=== PATIENT | female | born 1950 | race Caucasian/White ===

== ENCOUNTER 2016-09-01 11:54 | Emergency (ER) | payer MEDICARE, OTHER ==
[2016-06-19 07:32] VITALS: BMI 17.8
[~2016-09-01 11:54] MED LIST: BENZONATATE200 MG PO; DALIRESP500 MCG PO; DURAGESIC1 PATCH .2 TD; EXCEDRIN EXTRA1 TAB PO; HYDROCODONE-APA1 TAB PO; INCRUSE IH; PHENERGAN25 M1 PO; PRILOSEC20 MG PO; SYMBICORT 16010.2 GM INH; TARCEVA150 MG PO
[2016-09-01 16:02] LABS: BASOPHILS 0.3 % (0.0-2.0); EOSINOPHILS 0.3 % (0-7); HEMATOCRIT 40.4 % (36.0-48.0); HEMOGLOBIN 12.8 g/dL (12-16); IMMATURE GRANULOCYTES 0.3 % (0-5); LYMPHOCYTES 8.8 % (15-50); MCHC 31.7 g/dL (31.0-37.0); MCV 91.6 fL (80.0-100.0); MEAN PLATELET VOLUME 9.5 fL (7.4-10.4); NEUTROPHILS 84.3 % (40-80); PLATELET COUNT 210 10x3/uL (130-400); RBC 4.41 10x6/uL (4.00-5.40); RDW 15.3 % (11.5-14.5); WBC 6.8 10x3/uL (4.8-10.8)
[2016-09-01 16:11] LABS: INR 1.11 (0.85-1.17); PROTIME 14.2 SECONDS (11.6-15.0)
[2016-09-01 16:13] LABS: ANION GAP 10.9 mmol/L (8-16); CALCIUM 9.6 mg/dL (8.5-10.1); CARBON DIOXIDE 30.8 mmol/L (21.0-32.0); CREATININE - SERUM 1.4 mg/dL (0.6-1.3); POTASSIUM - SERUM 4.7 mmol/L (3.5-5.1)
== END 2016-09-01 19:05 | disposition home or self-care (01) ==
LOC: D.ER 11:54
PROVIDERS: Nurse Practitioner Family
DX: T18.128A Food in esophagus causing other injury, initial encounter (principal); X58.XXXA Exposure to other specified factors, initial encounter; Y93.89 Activity, other specified; Y92.019 Unspecified place in single-family (private) house as the place of occurrence of the external cause; M54.9 Dorsalgia, unspecified; C34.90 Malignant neoplasm of unspecified part of unspecified bronchus or lung

== ENCOUNTER 2016-10-07 19:14 | Emergency (ER) | payer MEDICARE, OTHER ==
[2016-06-19 07:32] VITALS: BMI 17.8
[2016-10-07 20:21] LABS: APPEARANCE CLEAR (CLEAR); BILIRUBIN NEGATIVE (NEGATIVE); COLOR YELLOW (YELLOW); GLUCOSE NEGATIVE (NEGATIVE); KETONE NEGATIVE (NEGATIVE); LEUKOCYTE ESTERASE NEGATIVE (NEGATIVE); NITRITE NEGATIVE (NEGATIVE); PROTEIN NEGATIVE (NEGATIVE); UROBILINOGEN NORMAL (NORMAL)
== END 2016-10-07 20:28 | disposition home or self-care (01) ==
LOC: D.ER 19:14
PROVIDERS: Nurse Practitioner Acute Care
DX: K59.00 Constipation, unspecified (principal); C34.90 Malignant neoplasm of unspecified part of unspecified bronchus or lung; F17.200 Nicotine dependence, unspecified, uncomplicated

== ENCOUNTER 2016-10-08 11:24 | Emergency (ER) | payer MEDICARE, OTHER ==
[2016-06-19 07:32] VITALS: BMI 17.8
== END 2016-10-08 14:38 | disposition left against medical advice (07) ==
LOC: D.ER 11:24
DX: K59.00 Constipation, unspecified (principal)

== ENCOUNTER 2016-10-10 13:42 | Emergency (ER) | payer MEDICARE, OTHER ==
[2016-06-19 07:32] VITALS: BMI 17.8
== END 2016-10-10 19:38 | disposition home or self-care (01) ==
LOC: D.ER 13:42
DX: K59.00 Constipation, unspecified (principal); C34.90 Malignant neoplasm of unspecified part of unspecified bronchus or lung

== ENCOUNTER 2016-11-09 00:32 | Emergency (ER) | payer MEDICARE, OTHER ==
[2016-06-19 07:32] VITALS: BMI 17.8
[2016-11-09 02:48] LABS: APPEARANCE CLEAR (CLEAR); BILIRUBIN NEGATIVE (NEGATIVE); COLOR YELLOW (YELLOW); GLUCOSE NEGATIVE (NEGATIVE); KETONE NEGATIVE (NEGATIVE); LEUKOCYTE ESTERASE TRACE (NEGATIVE); NITRITE NEGATIVE (NEGATIVE); PROTEIN NEGATIVE (NEGATIVE); UROBILINOGEN NORMAL (NORMAL)
[2016-11-09 02:51] LABS: BACTERIA FEW /hpf (NONE SEEN); EPITHELIAL CELLS OCC /hpf (0-5); RED CELLS - URINE 0-5 /hpf (0-5); WHITE CELLS - URINE OCC /hpf (0-5)
== END 2016-11-09 03:58 | disposition home or self-care (01) ==
LOC: D.ER 00:32
PROVIDERS: Surgery
DX: K59.00 Constipation, unspecified (principal); C34.90 Malignant neoplasm of unspecified part of unspecified bronchus or lung

== ENCOUNTER 2016-11-11 20:00 | Emergency (ER) | payer MEDICARE, OTHER ==
[2016-06-19 07:32] VITALS: BMI 17.8
[2016-11-11 20:56] LABS: BASOPHILS 0.3 % (0.0-2.0); EOSINOPHILS 1.4 % (0-7); HEMATOCRIT 35.6 % (36.0-48.0); HEMOGLOBIN 11.4 g/dL (12-16); IMMATURE GRANULOCYTES 0.2 % (0-5); LYMPHOCYTES 16.9 % (15-50); MCH 28.1 pg (26.0-34.0); MCV 87.7 fL (80.0-100.0); MEAN PLATELET VOLUME 9.1 fL (7.4-10.4); MONOCYTES 10.6 % (2-11); NEUTROPHILS 70.6 % (40-80); RBC 4.06 10x6/uL (4.00-5.40); RDW 14.2 % (11.5-14.5); WBC 5.7 10x3/uL (4.8-10.8)
[2016-11-11 21:01] LABS: PLATELET COUNT 281 10x3/uL (130-400)
[2016-11-11 21:15] LABS: ALKALINE PHOSPHATASE 54 U/L (46-116); ALT (SGPT) 11 U/L (10-68); BILIRUBIN - TOTAL 0.16 mg/dL (0.2-1.3); CALC OSMOLALITY 272 mosm/kg (275-300); CALCIUM 8.5 mg/dL (8.5-10.1); CARBON DIOXIDE 31.9 mmol/L (21.0-32.0); CHLORIDE - SERUM 99 mmol/L (98-107); CREATININE - SERUM 0.8 mg/dL (0.6-1.3); GLUCOSE 115 mg/dL (74-106); POTASSIUM - SERUM 4.9 mmol/L (3.5-5.1); PROTEIN - SERUM 6.7 g/dL (6.4-8.2); SODIUM 135 mmol/L (136-145); UREA NITROGEN 17 mg/dL (7-18); eGFR NON AFRICAN AMERICAN 76 mL/min (90-120)
== END 2016-11-11 22:19 | disposition home or self-care (01) ==
LOC: D.ER 20:00
PROVIDERS: Emergency Medicine
DX: J44.1 Chronic obstructive pulmonary disease with (acute) exacerbation (principal); T48.3X1A Poisoning by antitussives, accidental (unintentional), initial encounter; Y92.019 Unspecified place in single-family (private) house as the place of occurrence of the external cause; M54.9 Dorsalgia, unspecified; C34.90 Malignant neoplasm of unspecified part of unspecified bronchus or lung

== ENCOUNTER → 2017-03-04 12:56 | Outpatient (CLI) | payer MEDICARE, OTHER ==
[2016-06-19 07:32] VITALS: BMI 17.8
== END | disposition home or self-care (01) ==
LOC: D.CT 12:56
DX: Z85.118 Personal history of other malignant neoplasm of bronchus and lung (principal)

== ENCOUNTER 2017-03-25 07:18 | Outpatient (CLI) | payer MEDICARE, OTHER ==
[~2017-03-25] VITALS: Ht 167.6 cm; Wt 44.5 kg
[2017-03-25 07:55] LABS: BASOPHILS 0.2 % (0-2); HEMATOCRIT 38.1 % (36.0-48.0); HEMOGLOBIN 12.3 g/dL (12-16); LYMPHOCYTES 21.2 % (15-50); MCH 28.7 pg (26.0-34.0); MCHC 32.3 g/dL (31.0-37.0); MCV 88.8 fL (80.0-100.0); MEAN PLATELET VOLUME 9.5 fL (7.4-10.4); MONOCYTES 7.9 % (2-11); NEUTROPHILS 69.7 % (40-80); RBC 4.29 10x6/uL (4.00-5.40); RDW 14.2 % (11.5-14.5); WBC 5.8 10x3/uL (4.8-10.8)
[2017-03-25 07:57] LABS: PLATELET COUNT 216 10x3/uL (130-400)
[2017-03-25 08:00] VITALS: BP 126/73; Ht 167.6 cm; Wt 44.5 kg
[2017-03-25 08:28] LABS: ANION GAP 6.7 mmol/L (8-16); CALCIUM 8.7 mg/dL (8.5-10.1); CARBON DIOXIDE 34.6 mmol/L (21.0-32.0); POTASSIUM - SERUM 4.3 mmol/L (3.5-5.1)
[2017-03-25 08:30] LABS: APTT 30.6 SECONDS (22.8-39.4); INR 1.09 (0.85-1.17); PROTIME 13.9 SECONDS (11.6-15.0)
--- NOTE | 2017-03-25 16:15 | NUR ---
SEE POST PROCEDURE SHEET FOR VITAL SIGNS
== END 2017-03-25 15:40 | disposition home or self-care (01) ==
LOC: D.OPS 07:18 → D.CT 10:00 → D.OPS 10:00
PROVIDERS: Radiology Diagnostic Radiology
DX: C34.32 Malignant neoplasm of lower lobe, left bronchus or lung (principal); F17.200 Nicotine dependence, unspecified, uncomplicated; Z01.812 Encounter for preprocedural laboratory examination

== ENCOUNTER 2017-04-09 08:10 | Day surgery (SDC) | payer MEDICARE, OTHER ==
[~2017-04-09] VITALS: Ht 167.6 cm; Wt 54.4 kg
[~2017-04-09 08:10] MED LIST changes: +LINZESS145 MCG PO; +WELLBUTRIN SR150 MG PO
[2017-04-09] MEDS ORDERED: PROAIR HFA8.5 GM INH (08:44)
[2017-04-09 08:45] VITALS: BP 138/77; Ht 167.6 cm; Wt 54.4 kg
[2017-04-09 09:08] LABS: BASOPHILS 0.3 % (0-2); HEMATOCRIT 36.3 % (36.0-48.0); HEMOGLOBIN 12.3 g/dL (12-16); IMMATURE GRANULOCYTES 0.3 % (0-5); LYMPHOCYTES 6.4 % (15-50); MCH 29.5 pg (26.0-34.0); MCHC 33.9 g/dL (31.0-37.0); MCV 87.1 fL (80.0-100.0); MEAN PLATELET VOLUME 9.8 fL (7.4-10.4); MONOCYTES 5.5 % (2-11); NEUTROPHILS 86.5 % (40-80); PLATELET COUNT 212 10x3/uL (130-400); RBC 4.17 10x6/uL (4.00-5.40); RDW 13.9 % (11.5-14.5); WBC 7.7 10x3/uL (4.8-10.8)
[2017-04-09 09:56] LABS: INR 1.15 (0.85-1.17); PROTIME 14.5 SECONDS (11.6-15.0)
[2017-04-09 09:57] LABS: APTT 52.1 SECONDS (22.8-39.4)
--- NOTE | 2017-04-09 14:55 | NUR ---
1300 IV DC WITH CATHER TIP INTACT
--- NOTE | 2017-04-09 15:05 | NUR ---
HEMOTOMA TO PORT SITE ,DR DAVIDSON CALLED ,WANT TO SEE STILL WAITING ON DR DAVIDSON
== END 2017-04-09 14:00 | disposition home or self-care (01) ==
LOC: D.OPS 08:10 → D.PAN 10:00 → D.OPS 14:00
PROVIDERS: Anesthesiology
DX: C34.90 Malignant neoplasm of unspecified part of unspecified bronchus or lung (principal); F17.200 Nicotine dependence, unspecified, uncomplicated; J44.9 Chronic obstructive pulmonary disease, unspecified; R05 Cough; K21.9 Gastro-esophageal reflux disease without esophagitis; Z01.812 Encounter for preprocedural laboratory examination

== ENCOUNTER → 2017-09-06 09:08 | Outpatient (CLI) | payer MEDICARE, OTHER ==
[2017-04-09 08:45] VITALS: BMI 19.4
[~2017-09-06 09:08] MED LIST changes: +PROAIR HFA8.5 GM INH
== END | disposition home or self-care (01) ==
LOC: D.MRI 09:00
DX: Z85.118 Personal history of other malignant neoplasm of bronchus and lung (principal)

== ENCOUNTER → 2017-09-27 09:55 | Outpatient (CLI) | payer MEDICARE, OTHER ==
[2017-04-09 08:45] VITALS: BMI 19.4
== END | disposition home or self-care (01) ==
LOC: D.MRI 09:55
DX: K76.9 Liver disease, unspecified (principal)

== ENCOUNTER 2017-11-11 12:09 | Emergency (ER) | payer MEDICARE, OTHER ==
[2017-04-09 08:45] VITALS: BMI 19.4
[2017-11-12] MEDS ORDERED: EXCEDRIN CAPLET1 TAB (22:51)
== END 2017-11-11 14:14 | disposition home or self-care (01) ==
LOC: D.ER 12:09
DX: R07.0 Pain in throat (principal); J44.9 Chronic obstructive pulmonary disease, unspecified; Z85.118 Personal history of other malignant neoplasm of bronchus and lung

== ENCOUNTER 2017-11-12 12:57 | Inpatient (IN) | payer MEDICARE, OTHER ==
[~2017-11-12] VITALS: Ht 167.6 cm; Wt 41.7 kg
[2017-11-12 13:52] LABS: BASOPHILS 0.4 % (0-2); EOSINOPHILS 0.3 % (0-7); HEMATOCRIT 41.8 % (36.0-48.0); IMMATURE GRANULOCYTES 0.3 % (0-5); LYMPHOCYTES 10.6 % (15-50); MCH 29.9 pg (26.0-34.0); MCHC 33.5 g/dL (31.0-37.0); MCV 89.1 fL (80.0-100.0); MEAN PLATELET VOLUME 9.7 fL (7.4-10.4); MONOCYTES 5.3 % (2-11); NEUTROPHILS 83.1 % (40-80); RBC 4.69 10x6/uL (4.00-5.40); RDW 15.1 % (11.5-14.5); WBC 7.7 10x3/uL (4.8-10.8)
[2017-11-12 13:53] LABS: PLATELET COUNT 255 10x3/uL (130-400)
[2017-11-12 14:12] LABS: ALBUMIN 3.9 g/dL (3.4-5.0); ANION GAP 20.3 mmol/L (8-16); BILIRUBIN - TOTAL 0.6 mg/dL (0.2-1.3); CALCIUM 9.4 mg/dL (8.5-10.1); CARBON DIOXIDE 22.8 mmol/L (21.0-32.0); POTASSIUM - SERUM 4.1 mmol/L (3.5-5.1); PROTEIN - SERUM 8.2 g/dL (6.4-8.2)
[2017-11-12 16:07] LABS: APPEARANCE CLEAR (CLEAR); BILIRUBIN NEGATIVE (NEGATIVE); COLOR YELLOW (YELLOW); GLUCOSE NEGATIVE (NEGATIVE); KETONE MODERATE mg/dL (NEGATIVE); NITRITE NEGATIVE (NEGATIVE); PROTEIN 1+ mg/dL (NEGATIVE); UROBILINOGEN NORMAL (NORMAL)
[2017-11-12 16:08] LABS: BACTERIA FEW /hpf (NONE SEEN); EPITHELIAL CELLS OCC /hpf (0-5); RED CELLS - URINE 0-5 /hpf (0-5); WHITE CELLS - URINE 0-5 /hpf (0-5)
[2017-11-12 18:54] VITALS: BP 114/76
[2017-11-12 20:16] VITALS: BP 109/66
[2017-11-12] MEDS ORDERED: EXCEDRIN CAPLET1 TAB (22:51)
[2017-11-12 23:49] VITALS: BP 115/70
[2017-11-13 01:49] VITALS: BP 113/77; BMI 14.8
[2017-11-13 04:20] VITALS: BP 109/70
[2017-11-13 05:07] LABS: BASOPHILS 0.3 % (0-2); EOSINOPHILS 0.8 % (0-7); HEMATOCRIT 33.9 % (36.0-48.0); IMMATURE GRANULOCYTES 0.1 % (0-5); LYMPHOCYTES 13.5 % (15-50); MCH 28.9 pg (26.0-34.0); MCHC 32.4 g/dL (31.0-37.0); MCV 89.2 fL (80.0-100.0); MEAN PLATELET VOLUME 9.4 fL (7.4-10.4); MONOCYTES 7.5 % (2-11); NEUTROPHILS 77.8 % (40-80); PLATELET COUNT 214 10x3/uL (130-400); RDW 15.1 % (11.5-14.5); WBC 7.8 10x3/uL (4.8-10.8)
[2017-11-13 05:17] LABS: ANION GAP 13.1 mmol/L (8-16); CALCIUM 7.9 mg/dL (8.5-10.1); CARBON DIOXIDE 26.9 mmol/L (21.0-32.0); CREATININE - SERUM 0.9 mg/dL (0.6-1.3)
[2017-11-13 08:00] VITALS: BP 128/76
[2017-11-13 11:54] VITALS: BP 136/77
[2017-11-13] MEDS ORDERED: PROTONIX40 MG PO (12:14)
[2017-11-13 12:56] VITALS: Ht 167.6 cm; Wt 41.7 kg
== END 2017-11-13 12:00 | disposition home or self-care (01) | DRG 394 ==
LOC: OBSVTIME → D.ER 12:57 → D.OPS 12:57 → EDSTATUS 15:19 → D.MS 15:41 → D.ER 15:41 → D.SDCHOLD 15:41 → D.EDHOLD 15:41 → OBSVTIME 15:42 → D.EDHOLD 16:36 → D.SDCHOLD 16:36 → D.MS 18:43 → D.SDCHOLD 18:43 → D.MS 19:26
PROVIDERS: Family Medicine; Internal Medicine Gastroenterology
PROC: 0DD38ZX Extraction of Lower Esophagus, Via Natural or Artificial Opening Endoscopic, Diagnostic (ICD-10-PCS; 2017-11-12)
PROC: 0DD78ZX Extraction of Stomach, Pylorus, Via Natural or Artificial Opening Endoscopic, Diagnostic (ICD-10-PCS; 2017-11-12)
PROC: 0DC38ZZ Extirpation of Matter from Lower Esophagus, Via Natural or Artificial Opening Endoscopic (ICD-10-PCS; principal; 2017-11-12 18:04)
DX: T18.128A Food in esophagus causing other injury, initial encounter (principal); K22.10 Ulcer of esophagus without bleeding; F17.203 Nicotine dependence unspecified, with withdrawal; X58.XXXA Exposure to other specified factors, initial encounter; J44.9 Chronic obstructive pulmonary disease, unspecified; K22.2 Esophageal obstruction; K25.9 Gastric ulcer, unspecified as acute or chronic, without hemorrhage or perforation

== ENCOUNTER 2017-12-03 10:01 | Inpatient (IN) | payer MEDICARE, OTHER ==
[~2017-12-03] VITALS: Ht 167.6 cm; Wt 43.1 kg
--- NOTE | ~2017-12-03 | OP ---
PATIENT NAME: ELISSA PEMBERTON MEDICAL RECORD: [id number] :48 LOCATION:D.MS [id number] ADMISSION DATE:12/03/17 SURGEON: JEAN-CLAUDE HERNANDEZ MD DATE OF OPERATION: 12/03/2017 SURGEON: Jean-Claude Hernandez MD ANESTHESIOLOGIST: Raoul Warner MD PRODUCTION UTILITY WORKER: None. PREOPERATIVE DIAGNOSIS: Closed right valgus impacted subcapital femoral neck fracture. POSTOPERATIVE DIAGNOSIS: Closed right valgus impacted subcapital femoral neck fracture. PROCEDURE PERFORMED: Right hip pinning. ANTIBIOTIC: 1 gram Ancef. ESTIMATED BLOOD LOSS: 10 cc. FINDINGS: See body of report. COMPLICATIONS: None. PATHOLOGY: None. IMPLANTS: The implants utilized were the Endoventionis Paradise III 6.5 mm cannulated screws. Three screws were utilized, an 80 mm, an 85-mm, and an 85-mm screw. DRAINS: None. TOURNIQUET: None. POSTOP: Stable condition to the recovery room. COUNTS: Needle, sponge, and instrument counts were correct. INDICATIONS FOR PROCEDURE: The patient presented to the Emergency Room this afternoon after having sustained a fall when her dog tripped her up with the leash. She was unable to bear weight on her right lower extremity and experienced pain localizing to her groin with positive log roll. X-rays in the Emergency Room revealed a right closed valgus impacted subcapital femoral neck fracture. The patient was evaluated in the Emergency Room where a recommendation for hip pinning was made. The patient was admitted to the hospital, medically cleared and optimized the same day and was taken for surgery later this afternoon. DESCRIPTION OF PROCEDURE: The patient was brought to the operating room after risks, benefits, alternatives, and complications of the proposed procedure was discussed with her. Her questions were answered. She consented to the surgery and the consent forms were placed in the chart. The patient was placed supine on the fracture table. Her well leg was placed in OPERATIVE REPORT [id number] ELISSA PEMBERTON a sling made of blankets and was well protected. The fractured limb was applied to the fracture table utilizing the boot. A reduction maneuver was then performed and using fluoroscopic imaging in the AP and lateral planes it was that it would be possible to obtain the appropriate imaging for the surgery. An adequate reduction was also confirmed. The right lateral hip was then prepped and draped in the usual sterile fashion. Fluoroscopic imaging and a pin were utilized to determine the appropriate location for the incision and the appropriate direction for pin placement into the femoral head and neck. At this point, an incision was made lateral to the proximale femur and bleeders were cauterized down to the fascia jake. Small stab incisions were made for the 3 screws. Three pins were inserted under fluoroscopic guidance into appropriate position. Following this, measurements were taken over the pins and the three screws were applied one after the other over the three pins in the following order: The inferior screw, the superior anterior screw, and finally the superior posterior screw. The screws were placed under fluoroscopic guidance to an appropriate depth. Once all 3 screws were in, the 3 wires were removed and final imaging in the AP and lateral plane was performed revealing an adequate reduction and internal fixation. Copious irrigation was carried out followed by closure of the subcutaneous tissue with Vicryl and the skin with yasemin. A sterile dressing was applied. The patient was taken off the fracture table and was extubated and placed on a regular bed in the supine position and was taken to recovery room in stable condition. TRANSINT:[id number] Voice Confirmation ID: [id number] DOCUMENT ID: [id number] JEAN-CLAUDE HERNANDEZ MD at 1750 CC: [id number] DICTATION DATE: 12/03/171847 SOLAR POOL HEATING INSTALLER: 12/03/171937 ADM IN [facility] [address] [id number]
[~2017-12-03 10:01] MED LIST changes: +EXCEDRIN CAPLET1 TAB; +PROTONIX40 MG PO
[2017-12-03 12:23] LABS: BASOPHILS 0.2 % (0-2); EOSINOPHILS 0.6 % (0-7); HEMATOCRIT 33.7 % (36.0-48.0); IMMATURE GRANULOCYTES 0.3 % (0-5); LYMPHOCYTES 6.7 % (15-50); MCH 29.1 pg (26.0-34.0); MCHC 32.6 g/dL (31.0-37.0); MCV 89.2 fL (80.0-100.0); NEUTROPHILS 87.2 % (40-80); RBC 3.78 10x6/uL (4.00-5.40); RDW 15.6 % (11.5-14.5); WBC 11.1 10x3/uL (4.8-10.8)
[2017-12-03 12:24] LABS: PLATELET COUNT 311 10x3/uL (130-400)
[2017-12-03 12:30] LABS: INR 1.09 (0.85-1.17); PROTIME 13.7 SECONDS (11.6-15.0)
[2017-12-03 12:31] LABS: APTT 31.2 SECONDS (22.8-39.4)
[2017-12-03 12:37] LABS: ALBUMIN 2.9 g/dL (3.4-5.0); ALKALINE PHOSPHATASE 55 U/L (46-116); ALT (SGPT) 14 U/L (10-68); BILIRUBIN - TOTAL 0.28 mg/dL (0.2-1.3); CALC OSMOLALITY 279 mosm/kg (275-300); CALCIUM 7.9 mg/dL (8.5-10.1); CARBON DIOXIDE 27.9 mmol/L (21.0-32.0); CHLORIDE - SERUM 104 mmol/L (98-107); CREATININE - SERUM 0.7 mg/dL (0.6-1.3); GLUCOSE 85 mg/dL (74-106); POTASSIUM - SERUM 4.1 mmol/L (3.5-5.1); PROTEIN - SERUM 6.8 g/dL (6.4-8.2); SODIUM 140 mmol/L (136-145); UREA NITROGEN 18 mg/dL (7-18); eGFR NON AFRICAN AMERICAN 88 mL/min (90-120)
[2017-12-03 20:08] VITALS: BP 148/83
[2017-12-03 23:54] VITALS: BP 137/75
[2017-12-04 01:10] VITALS: BP 143/83; BMI 15.3
[2017-12-04 04:29] VITALS: BP 145/80
[2017-12-04 05:55] LABS: BASOPHILS 0.2 % (0-2); EOSINOPHILS 0.3 % (0-7); HEMATOCRIT 31.6 % (36.0-48.0); IMMATURE GRANULOCYTES 0.2 % (0-5); LYMPHOCYTES 4.9 % (15-50); MCH 28.7 pg (26.0-34.0); MCHC 31.6 g/dL (31.0-37.0); MCV 90.8 fL (80.0-100.0); MEAN PLATELET VOLUME 9.1 fL (7.4-10.4); MONOCYTES 6.2 % (2-11); NEUTROPHILS 88.2 % (40-80); RBC 3.48 10x6/uL (4.00-5.40); RDW 15.5 % (11.5-14.5); WBC 10.5 10x3/uL (4.8-10.8)
[2017-12-04 05:56] LABS: PLATELET COUNT 241 10x3/uL (130-400)
[2017-12-04 06:29] LABS: CALC OSMOLALITY 274 mosm/kg (275-300); CALCIUM 7.5 mg/dL (8.5-10.1); CARBON DIOXIDE 24.3 mmol/L (21.0-32.0); CHLORIDE - SERUM 103 mmol/L (98-107); CREATININE - SERUM 0.6 mg/dL (0.6-1.3); GLUCOSE 93 mg/dL (74-106); POTASSIUM - SERUM 4.2 mmol/L (3.5-5.1); SODIUM 137 mmol/L (136-145); UREA NITROGEN 15 mg/dL (7-18); eGFR NON AFRICAN AMERICAN > 90 mL/min (90-120)
[2017-12-04 08:40] VITALS: BP 115/71
[2017-12-04 10:27] VITALS: BMI 15.3
[2017-12-04 12:36] VITALS: BP 112/79
[2017-12-04 16:56] VITALS: BP 120/66
[2017-12-04 20:27] VITALS: BP 92/65
[2017-12-04 22:02] LABS: APPEARANCE CLEAR (CLEAR); BILIRUBIN NEGATIVE (NEGATIVE); COLOR YELLOW (YELLOW); GLUCOSE NEGATIVE (NEGATIVE); KETONE NEGATIVE (NEGATIVE); NITRITE NEGATIVE (NEGATIVE); PROTEIN NEGATIVE (NEGATIVE); UROBILINOGEN NORMAL (NORMAL)
[2017-12-04 22:04] LABS: RED CELLS - URINE 0-5 /hpf (0-5); WHITE CELLS - URINE 0-5 /hpf (0-5)
[2017-12-05 00:22] VITALS: BP 85/60
[2017-12-05 06:42] LABS: BASOPHILS 0.2 % (0-2); EOSINOPHILS 3.5 % (0-7); HEMATOCRIT 29.7 % (36.0-48.0); HEMOGLOBIN 9.5 g/dL (12-16); IMMATURE GRANULOCYTES 0.2 % (0-5); LYMPHOCYTES 7.5 % (15-50); MCH 29.1 pg (26.0-34.0); MCV 90.8 fL (80.0-100.0); MEAN PLATELET VOLUME 9.4 fL (7.4-10.4); MONOCYTES 8.6 % (2-11); PLATELET COUNT 221 10x3/uL (130-400); RBC 3.27 10x6/uL (4.00-5.40); RDW 15.1 % (11.5-14.5)
[2017-12-05 06:45] LABS: WBC 6.5 10x3/uL (4.8-10.8)
[2017-12-05 06:56] LABS: CALC OSMOLALITY 270 mosm/kg (275-300); CARBON DIOXIDE 29.3 mmol/L (21.0-32.0); CHLORIDE - SERUM 102 mmol/L (98-107); CREATININE - SERUM 0.6 mg/dL (0.6-1.3); GLUCOSE 108 mg/dL (74-106); POTASSIUM - SERUM 3.9 mmol/L (3.5-5.1); SODIUM 135 mmol/L (136-145); UREA NITROGEN 13 mg/dL (7-18); eGFR NON AFRICAN AMERICAN > 90 mL/min (90-120)
[2017-12-05 08:26] VITALS: BP 116/64
[2017-12-05 12:00] VITALS: BP 99/70
[2017-12-05 16:14] VITALS: BP 102/71
[2017-12-05 21:12] VITALS: BP 105/69
[2017-12-06 06:14] LABS: BASOPHILS 0.2 % (0-2); IMMATURE GRANULOCYTES 0.2 % (0-5); LYMPHOCYTES 15.5 % (15-50); MCH 29.2 pg (26.0-34.0); MCHC 32.3 g/dL (31.0-37.0); MCV 90.4 fL (80.0-100.0); MEAN PLATELET VOLUME 9.2 fL (7.4-10.4); MONOCYTES 11.1 % (2-11); PLATELET COUNT 235 10x3/uL (130-400); RBC 3.43 10x6/uL (4.00-5.40); RDW 15.4 % (11.5-14.5); WBC 5.8 10x3/uL (4.8-10.8)
[2017-12-06 06:33] LABS: CALC OSMOLALITY 276 mosm/kg (275-300); CALCIUM 8.3 mg/dL (8.5-10.1); CARBON DIOXIDE 30.1 mmol/L (21.0-32.0); CHLORIDE - SERUM 101 mmol/L (98-107); CREATININE - SERUM 0.6 mg/dL (0.6-1.3); GLUCOSE 91 mg/dL (74-106); POTASSIUM - SERUM 3.9 mmol/L (3.5-5.1); SODIUM 138 mmol/L (136-145); UREA NITROGEN 14 mg/dL (7-18); eGFR NON AFRICAN AMERICAN > 90 mL/min (90-120)
[2017-12-06 08:38] VITALS: BP 113/64
[2017-12-06 12:23] VITALS: BP 95/56
[2017-12-06 16:37] VITALS: BP 93/63
[2017-12-06 20:29] VITALS: BP 112/70
[2017-12-07 04:14] VITALS: BP 135/77
[2017-12-07 05:45] LABS: BASOPHILS 0.2 % (0-2); HEMATOCRIT 28.8 % (36.0-48.0); HEMOGLOBIN 9.4 g/dL (12-16); IMMATURE GRANULOCYTES 0.2 % (0-5); LYMPHOCYTES 11.6 % (15-50); MCHC 32.6 g/dL (31.0-37.0); MCV 88.9 fL (80.0-100.0); MEAN PLATELET VOLUME 9.2 fL (7.4-10.4); MONOCYTES 8.9 % (2-11); NEUTROPHILS 75.1 % (40-80); PLATELET COUNT 237 10x3/uL (130-400); RBC 3.24 10x6/uL (4.00-5.40); RDW 14.8 % (11.5-14.5); WBC 6.1 10x3/uL (4.8-10.8)
[2017-12-07 06:16] LABS: CALC OSMOLALITY 280 mosm/kg (275-300); CALCIUM 8.7 mg/dL (8.5-10.1); CARBON DIOXIDE 30.4 mmol/L (21.0-32.0); CHLORIDE - SERUM 103 mmol/L (98-107); CREATININE - SERUM 0.7 mg/dL (0.6-1.3); GLUCOSE 104 mg/dL (74-106); SODIUM 140 mmol/L (136-145); UREA NITROGEN 17 mg/dL (7-18); eGFR NON AFRICAN AMERICAN 88 mL/min (90-120)
[2017-12-07 08:55] VITALS: BP 126/80
[2017-12-07] MEDS ORDERED: ELIQUIS2.5 MG PO (10:25)
[2017-12-07 12:07] VITALS: BP 117/76
[2017-12-07 13:39] VITALS: Ht 167.6 cm; Wt 43.1 kg
[2017-12-07 16:32] VITALS: BP 121/76
== END 2017-12-07 18:01 | DRG 535 ==
LOC: D.ER 10:01 → D.MS 11:08 → D.EDHOLD 11:08 → D.MS 18:45
PROVIDERS: Emergency Medicine; Internal Medicine Nephrology; Orthopaedic Surgery Foot and Ankle Surgery
PROC: 0QS63ZZ Reposition Right Upper Femur, Percutaneous Approach (ICD-10-PCS; principal; 2017-12-03 12:00)
DX: S72.011A Unspecified intracapsular fracture of right femur, initial encounter for closed fracture (principal); E43 Unspecified severe protein-calorie malnutrition; C34.90 Malignant neoplasm of unspecified part of unspecified bronchus or lung; F17.203 Nicotine dependence unspecified, with withdrawal; Z68.1 Body mass index [BMI] 19.9 or less, adult; W01.0XXA Fall on same level from slipping, tripping and stumbling without subsequent striking against object, initial encounter; J44.9 Chronic obstructive pulmonary disease, unspecified; K21.9 Gastro-esophageal reflux disease without esophagitis

== ENCOUNTER 2017-12-07 14:43 | Inpatient (IN) | payer MEDICARE, OTHER ==
[~2017-12-07] VITALS: Ht 167.6 cm; Wt 42.6 kg
--- NOTE | ~2017-12-07 | RHP ---
PATIENT: ELISSA PEMBERTON MEDICAL RECORD: [id number] ACCOUNT: [id number] LOCATION:[facility].1114 : 48 ADMISSION DATE: 12/07/17 REHABILITATION HISTORY AND PHYSICAL EXAMINATION POST ADMISSION PHYSICIAN EXAMINATION POST-ADMISSION PHYSICAL EXAMINATION AND HISTORY AND PHYSICAL DATE OF ADMISSION TO THE REHAB: 12/07/2017 ADMITTING DIAGNOSES: Closed valgus impacted subcapital right femoral neck fracture status post hip pinning. HISTORY OF PRESENT ILLNESS: The patient is a 67-year-old female patient, who presents to the rehab secondary to a right hip fracture. The patient has a history of COPD, but she does not wear O2 at home, lung cancer status post radiation and chemo, which she is followed by with Dr. Lawton with her most recent chemo treatment being on 11/19. She presented to the ER with complaints of having a fall that morning when she was walking her dog and tripped over his leash. She now complains of right hip pain and unable to bear weight on her right leg. She does have 2 scabbed areas on her forehead from that fall that was sustained a week prior to this recent fall sustaining her femur fracture. She was admitted for further evaluation and treatment. On x-ray in the Emergency Room, a subcapital right femoral neck fracture was found. She had surgery on 12/03 with pinning of her right hip. She has had some postop acute blood loss anemia requiring O2, hypotension, tachycardia, self-care deficit, and immobility. She was independent with mobility and was still driving prior to this incident. She is currently set up for max assist for ADLs and [id number] assist for mobility. She is nonweightbearing on her right lower extremity. She lives at home with her granddaughter. Her works out of town and plans to return home as close to her prior level of functioning as possible. Comorbidities in this patient include hematuria, chronic COPD, chronic asthma, acute nicotine dependence and withdrawal, acute gastric ulcer, acute esophageal ulcer, acute Schatzki's ring, hip fracture, gastroesophageal reflux disease, anemia, cachexia, underweight, chronic back pain, and tobacco use. PAST MEDICAL HISTORY: Significant for COPD, asthma, pneumonia, lung cancer, tobacco use, chronic UTIs, chronic back pain. PAST SURGICAL HISTORY: Includes , appendectomy, tonsillectomy and adenoidectomy, tubal ligation, left knee scope, right ORIF of her tibia, and left lung ablation. ALLERGIES: PENICILLIN. SHE IS ALLERGIC TO ATIVAN, CODEINE, ZOLOFT, AND CELEXA. CURRENT MEDICATIONS: Include Ventolin updrafts as needed. She is on Linzess 145 mcg daily. Protonix 40 mg b.i.d. Benadryl 25 mg every 4 hours p.r.n. itching. [place] 1 tab every 6 hours p.r.n., . She is on a Duragesic patch 75 mcg daily. She is on Advair HFA 115/21 two puffs b.i.d., Tessalon Perles 400 mg t.i.d., Eliquis 2.5 mg b.i.d., and polyethylene glycol 17 g in 8 ounces of water daily. HABITS: Does have a history of tobacco use. No alcohol use. HISTORY AND PHYSICAL [id number] ELISSA PEMBERTON FAMILY HISTORY: Noncontributory. SOCIAL HISTORY: The patient hopes to return back home. Her granddaughter takes care of her. REVIEW OF SYSTEMS: GENERAL: Does complain of weakness and fatigue. HEENT: Denies cold, cough, or congestion. CARDIOVASCULAR: Denies chest pain. PHYSICAL EXAMINATION: VITAL SIGNS: Stable, afebrile. GENERAL: A very thin female, in no acute distress upon exam. HEENT: Normocephalic and atraumatic. Mucosa moist. NECK: Supple. No lymphadenopathy. LUNGS: Decreased breath sounds bilaterally. CARDIOVASCULAR: Regular rate and rhythm. ABDOMEN: Benign. EXTREMITIES: No clubbing, cyanosis, or edema. It is consistent with peripheral vascular disease and postop swelling is normal from her right hip pinning. NEUROLOGIC: She seems intact. ASSESSMENT: This is a 67-year-old female patient admitted to the rehab with a working diagnosis of right hip fracture. The patient has potential to make improvement. We will institute the following multidisciplinary therapies including, but not limited to physical, occupational, respiratory, speech, nutritional services, prosthetics and orthotics. Given her complex medical condition and risks of further complications, rehabilitation services cannot be provided at a low level of care such as a assisted facility. PLAN: 1. Admit to [facility] for intensive inpatient therapy to include the following disciplines: A. Physical therapy to improve gait, all transfer skills and bed mobility to a modified independent level. B. Occupational therapy to improve activities of daily living to a modified independent level. C. Case management to assist with discharge planning and placement options. D. Nutrition to assist with nutritional needs. E. Rehabilitation nursing to assist in monitoring the patient's underlying medical conditions and to assist with any type of bowel or bladder management. 2. The patient's current medications will be continued. 3. The patient will be placed on standard fall precautions. 4. The patient's estimated length of stay is approximately 7-10 days. 5. I am going to discontinue her Benadryl, place her on some Atarax for recurrent rash and itching. 6. We will follow up with care team at noon. TRANSINT:[id number] Voice Confirmation ID: [id number] DOCUMENT ID: [id number] AMALIA notes whether there has been none or any medical/functional change since admission: - No change since prescreen. HISTORY AND PHYSICAL [id number] ELISSA PEMBERTON attests patient continues to be appropriate for IRF: - Continues to be appropriate. KHALDIA ORTIZ MD at 1411 CC: [id number] DICTATION DATE: 12/08/17 0835 CAPACITY PLANNER: 12/08/17 1012 ADM IN [id number] [place] [address]
[~2017-12-07 14:43] MED LIST changes: +ELIQUIS2.5 MG PO
[2017-12-07 19:23] VITALS: BP 123/65
[2017-12-07 22:28] VITALS: BP 123/65; BMI 15.2
[2017-12-08 08:28] VITALS: BP 95/61
[2017-12-08 09:39] LABS: BASOPHILS 0.5 % (0-2); EOSINOPHILS 3.7 % (0-7); HEMATOCRIT 28.8 % (36.0-48.0); HEMOGLOBIN 9.4 g/dL (12-16); IMMATURE GRANULOCYTES 0.3 % (0-5); LYMPHOCYTES 16.6 % (15-50); MCH 29.4 pg (26.0-34.0); MCHC 32.6 g/dL (31.0-37.0); MEAN PLATELET VOLUME 9.4 fL (7.4-10.4); MONOCYTES 9.3 % (2-11); NEUTROPHILS 69.6 % (40-80); PLATELET COUNT 257 10x3/uL (130-400); RDW 14.9 % (11.5-14.5); WBC 5.9 10x3/uL (4.8-10.8)
[2017-12-08 09:41] VITALS: Ht 167.6 cm; Wt 42.6 kg
[2017-12-08 10:01] LABS: CALC OSMOLALITY 275 mosm/kg (275-300); CALCIUM 8.8 mg/dL (8.5-10.1); CARBON DIOXIDE 29.4 mmol/L (21.0-32.0); CHLORIDE - SERUM 99 mmol/L (98-107); CREATININE - SERUM 0.7 mg/dL (0.6-1.3); GLUCOSE 100 mg/dL (74-106); POTASSIUM - SERUM 3.9 mmol/L (3.5-5.1); SODIUM 137 mmol/L (136-145); UREA NITROGEN 17 mg/dL (7-18); eGFR NON AFRICAN AMERICAN 88 mL/min (90-120)
[2017-12-08 20:05] VITALS: BP 106/56
[2017-12-09 08:00] VITALS: BP 94/59
[2017-12-09 20:00] VITALS: BP 98/52
[2017-12-10 07:13] LABS: BASOPHILS 0.4 % (0-2); HEMATOCRIT 28.5 % (36.0-48.0); HEMOGLOBIN 9.2 g/dL (12-16); IMMATURE GRANULOCYTES 0.4 % (0-5); LYMPHOCYTES 14.9 % (15-50); MCH 29.1 pg (26.0-34.0); MCHC 32.3 g/dL (31.0-37.0); MCV 90.2 fL (80.0-100.0); MEAN PLATELET VOLUME 9.1 fL (7.4-10.4); MONOCYTES 9.8 % (2-11); NEUTROPHILS 71.5 % (40-80); PLATELET COUNT 258 10x3/uL (130-400); RBC 3.16 10x6/uL (4.00-5.40); RDW 14.9 % (11.5-14.5); WBC 4.7 10x3/uL (4.8-10.8)
[2017-12-10 07:26] LABS: ANION GAP 9.3 mmol/L (8-16); CALCIUM 8.8 mg/dL (8.5-10.1); CARBON DIOXIDE 34.2 mmol/L (21.0-32.0)
[2017-12-10 07:27] LABS: CREATININE - SERUM 0.9 mg/dL (0.6-1.3); POTASSIUM - SERUM 4.5 mmol/L (3.5-5.1)
[2017-12-10 08:25] VITALS: BP 91/52
[2017-12-10] MEDS ORDERED: HYDROCODONE-APA1 TAB PO (08:27)
[2017-12-10] MEDS ORDERED: DURAGESIC1 PATCH .2 TRANSDERM (08:27)
== END 2017-12-10 14:16 | disposition home health service (06) | DRG 559 ==
LOC: D.REHAB 14:43
PROVIDERS: Emergency Medicine
DX: S72.011D Unspecified intracapsular fracture of right femur, subsequent encounter for closed fracture with routine healing (principal); E43 Unspecified severe protein-calorie malnutrition; F17.203 Nicotine dependence unspecified, with withdrawal; K25.3 Acute gastric ulcer without hemorrhage or perforation; K22.10 Ulcer of esophagus without bleeding; C34.90 Malignant neoplasm of unspecified part of unspecified bronchus or lung; Z68.1 Body mass index [BMI] 19.9 or less, adult; R31.9 Hematuria, unspecified; J44.9 Chronic obstructive pulmonary disease, unspecified; K22.2 Esophageal obstruction; K21.9 Gastro-esophageal reflux disease without esophagitis; D64.9 Anemia, unspecified; R63.6 Underweight; G89.29 Other chronic pain; W01.0XXD Fall on same level from slipping, tripping and stumbling without subsequent striking against object, subsequent encounter

== ENCOUNTER 2018-03-01 11:09 | Emergency (ER) | payer MEDICARE, OTHER ==
[~2018-03-01] VITALS: Ht 167.6 cm; Wt 41.8 kg
[~2018-03-01 11:09] MED LIST changes: +DURAGESIC1 PATCH .2 TRANSDERM
[2018-03-01 11:22] VITALS: Ht 167.6 cm; Wt 41.8 kg
[2018-03-01 12:01] LABS: BASOPHILS 0.3 % (0-2); EOSINOPHILS 1.9 % (0-7); HEMATOCRIT 37.8 % (36.0-48.0); HEMOGLOBIN 12.2 g/dL (12-16); IMMATURE GRANULOCYTES 0.2 % (0-5); LYMPHOCYTES 16.8 % (15-50); MCH 27.9 pg (26.0-34.0); MCHC 32.3 g/dL (31.0-37.0); MCV 86.3 fL (80.0-100.0); MEAN PLATELET VOLUME 9.4 fL (7.4-10.4); MONOCYTES 6.6 % (2-11); NEUTROPHILS 74.2 % (40-80); PLATELET COUNT 258 10x3/uL (130-400); RBC 4.38 10x6/uL (4.00-5.40); RDW 15.5 % (11.5-14.5); WBC 6.5 10x3/uL (4.8-10.8)
[2018-03-01 12:18] LABS: ALBUMIN 3.2 g/dL (3.4-5.0); ALKALINE PHOSPHATASE 51 U/L (46-116); ALT (SGPT) 10 U/L (10-68); BILIRUBIN - TOTAL 0.16 mg/dL (0.2-1.3); CALC OSMOLALITY 277 mosm/kg (275-300); CALCIUM 8.4 mg/dL (8.5-10.1); CARBON DIOXIDE 29.7 mmol/L (21.0-32.0); CHLORIDE - SERUM 107 mmol/L (98-107); CREATININE - SERUM 0.7 mg/dL (0.6-1.3); GLUCOSE 90 mg/dL (74-106); POTASSIUM - SERUM 3.6 mmol/L (3.5-5.1); PROTEIN - SERUM 6.8 g/dL (6.4-8.2); SODIUM 139 mmol/L (136-145); UREA NITROGEN 12 mg/dL (7-18); eGFR NON AFRICAN AMERICAN 88 mL/min (90-120)
[2018-03-01 13:25] VITALS: BP 85/44
== END 2018-03-01 13:25 | disposition home or self-care (01) ==
LOC: D.ER 11:09
PROVIDERS: Family Medicine
DX: R04.2 Hemoptysis (principal); C34.90 Malignant neoplasm of unspecified part of unspecified bronchus or lung; R53.1 Weakness; J44.9 Chronic obstructive pulmonary disease, unspecified; F17.200 Nicotine dependence, unspecified, uncomplicated

== ENCOUNTER 2018-04-09 22:13 | Day surgery (SDC) | payer MEDICARE, OTHER ==
[~2018-04-09] VITALS: Ht 167.6 cm; Wt 43.1 kg
[2018-04-09 23:56] LABS: BASOPHILS 0.8 % (0-2); EOSINOPHILS 2.5 % (0-7); HEMATOCRIT 37.7 % (36.0-48.0); HEMOGLOBIN 12.5 g/dL (12-16); IMMATURE GRANULOCYTES 0.2 % (0-5); LYMPHOCYTES 10.6 % (15-50); MCH 28.2 pg (26.0-34.0); MCHC 33.2 g/dL (31.0-37.0); MCV 84.9 fL (80.0-100.0); MEAN PLATELET VOLUME 8.8 fL (7.4-10.4); MONOCYTES 7.4 % (2-11); NEUTROPHILS 78.5 % (40-80); RBC 4.44 10x6/uL (4.00-5.40); RDW 15.7 % (11.5-14.5); WBC 6.4 10x3/uL (4.8-10.8)
[2018-04-09 23:58] LABS: PLATELET COUNT 336 10x3/uL (130-400)
[2018-04-09 23:59] LABS: INR 1.13 (0.85-1.17); PROTIME 14.1 SECONDS (11.6-15.0)
[2018-04-10 00:05] LABS: ALKALINE PHOSPHATASE 75 U/L (46-116); ALT (SGPT) 11 U/L (10-68); BILIRUBIN - TOTAL 0.38 mg/dL (0.2-1.3); CALC OSMOLALITY 277 mosm/kg (275-300); CALCIUM 7.9 mg/dL (8.5-10.1); CARBON DIOXIDE 23.9 mmol/L (21.0-32.0); CHLORIDE - SERUM 104 mmol/L (98-107); CREATININE - SERUM 0.7 mg/dL (0.6-1.3); GLUCOSE 81 mg/dL (74-106); PROTEIN - SERUM 7.6 g/dL (6.4-8.2); SODIUM 139 mmol/L (136-145); UREA NITROGEN 15 mg/dL (7-18); eGFR NON AFRICAN AMERICAN 88 mL/min (90-120)
[2018-04-10 00:40] VITALS: BP 132/77
[2018-04-10] MEDS ORDERED: DILAUDID2 MG PO (01:53)
[2018-04-10 04:27] VITALS: BP 104/76
[2018-04-10 07:23] VITALS: BP 104/76; BMI 15.3
[2018-04-10 09:19] VITALS: BP 113/66
[2018-04-10 11:54] VITALS: Ht 167.6 cm; Wt 43.1 kg
[2018-04-10] MEDS ORDERED: PROTONIX40 MG PO (12:04)
== END 2018-04-10 12:58 | disposition home or self-care (01) ==
LOC: OBSVTIME → D.ER 22:13 → D.OPS 22:13 → D.ER 04-10 01:05 → D.EDHOLD 04-10 01:05 → OBSVTIME 04-10 01:05 → D.MS 04-10 01:05 → D.EDHOLD 04-10 01:19 → D.MS 04-10 01:19 → D.ER 04-10 01:39 → D.MS 04-10 12:58 → D.OPS 04-10 12:58
PROVIDERS: Family Medicine
DX: T18.128A Food in esophagus causing other injury, initial encounter (principal); J44.9 Chronic obstructive pulmonary disease, unspecified; K20.9 Esophagitis, unspecified; K29.80 Duodenitis without bleeding; K29.70 Gastritis, unspecified, without bleeding

== ENCOUNTER 2018-11-03 17:33 | Outpatient (CLI) | payer MEDICARE, OTHER ==
[2018-04-10 11:54] VITALS: BMI 15.3
[~2018-11-03 17:33] MED LIST changes: +DILAUDID2 MG PO
== END 2018-11-03 17:34 | disposition home or self-care (01) ==
LOC: D.MAMMO 17:33
PROVIDERS: ATTEND Internal Medicine Hematology & Oncology
DX: N63.11 Unspecified lump in the right breast, upper outer quadrant (principal)

== ENCOUNTER 2019-04-07 10:25 | Emergency (ER) | payer MEDICARE, OTHER ==
[~2019-04-07] VITALS: Ht 167.6 cm; Wt 38.9 kg
[2019-04-07 10:28] VITALS: Ht 167.6 cm; Wt 38.9 kg
[2019-04-07] MEDS ORDERED: HYDROCODON-ACE1 EAC7 PO (10:32)
[2019-04-07] MEDS ORDERED: PHENERGAN12.5 MG PO (10:34)
[2019-04-07 10:58] LABS: BASOPHILS 0.3 % (0-2); EOSINOPHILS 2.1 % (0-7); HEMATOCRIT 38.6 % (36.0-48.0); IMMATURE GRANULOCYTES 0.1 % (0-5); LYMPHOCYTES 17.9 % (15-50); MCHC 33.7 g/dL (31.0-37.0); MEAN PLATELET VOLUME 8.6 fL (7.4-10.4); MONOCYTES 7.2 % (2-11); NEUTROPHILS 72.4 % (40-80); RBC 4.49 10x6/uL (4.00-5.40); RDW 15.2 % (11.5-14.5); WBC 7.7 10x3/uL (4.8-10.8)
[2019-04-07 11:11] LABS: PLATELET COUNT 248 10x3/uL (130-400)
[2019-04-07 11:51] LABS: APPEARANCE TURBID (CLEAR); COLOR DK YELLOW (YELLOW); NITRITE POSITIVE (NEGATIVE); SPECIFIC GRAVITY 1.015 (1.005-1.020)
[2019-04-07 11:52] LABS: BACTERIA MODERATE /hpf (NONE SEEN); BILIRUBIN NEGATIVE (NEGATIVE); EPITHELIAL CELLS 0-5 /hpf (0-5); GLUCOSE NEGATIVE (NEGATIVE); KETONE NEGATIVE (NEGATIVE); MUCUS <1+ /lpf (NONE SEEN); PROTEIN 2+ mg/dL (NEGATIVE); RED CELLS - URINE >50 /hpf (0-5); WHITE CELLS - URINE >50 /hpf (0-5)
[2019-04-07 12:36] VITALS: BP 125/76
[2019-04-07 12:55] LABS: ALBUMIN 3.2 g/dL (3.4-5.0); ANION GAP 12.2 mmol/L (8-16); BILIRUBIN - TOTAL 0.22 mg/dL (0.2-1.3); CALCIUM 9.1 mg/dL (8.5-10.1); CARBON DIOXIDE 30.8 mmol/L (21.0-32.0); CREATININE - SERUM 1.2 mg/dL (0.6-1.3); PROTEIN - SERUM 7.6 g/dL (6.4-8.2)
[2019-04-07] MEDS ORDERED: MACRODANTIN100 MG PO (13:03)
== END 2019-04-07 13:35 | disposition home or self-care (01) ==
LOC: D.ER 10:25
PROVIDERS: Family Medicine
DX: N39.0 Urinary tract infection, site not specified (principal); R31.9 Hematuria, unspecified

== ENCOUNTER 2019-04-21 18:13 | Emergency (ER) | payer MEDICARE, OTHER ==
[2019-04-07 10:28] VITALS: BMI 13.8
[~2019-04-21 18:13] MED LIST changes: +HYDROCODON-ACE1 EAC7 PO; +MACRODANTIN100 MG PO; +PHENERGAN12.5 MG PO
[2019-04-22] MEDS ORDERED: ALBUTEROL SULF8.5 GM INH (00:23)
== END 2019-04-21 18:25 | disposition left against medical advice (07) ==
LOC: D.ER 18:13
DX: R06.02 Shortness of breath (principal)

== ENCOUNTER 2019-04-21 22:34 | Emergency (ER) | payer MEDICARE, OTHER ==
[~2019-04-21] VITALS: Ht 167.6 cm; Wt 40.4 kg
[2019-04-21 22:40] VITALS: Ht 167.6 cm; Wt 40.4 kg
[2019-04-21 22:59] LABS: BASOPHILS 0.3 % (0-2); EOSINOPHILS 3.9 % (0-7); HEMOGLOBIN 13.1 g/dL (12-16); IMMATURE GRANULOCYTES 0.2 % (0-5); LYMPHOCYTES 9.1 % (15-50); MCHC 33.6 g/dL (31.0-37.0); MCV 86.5 fL (80.0-100.0); MONOCYTES 5.7 % (2-11); NEUTROPHILS 80.8 % (40-80); PLATELET COUNT 217 10x3/uL (130-400); RBC 4.51 10x6/uL (4.00-5.40); RDW 15.1 % (11.5-14.5); WBC 10.3 10x3/uL (4.8-10.8)
[2019-04-21 23:12] LABS: ALBUMIN 3.9 g/dL (3.4-5.0); ANION GAP 7.2 mmol/L (8-16); BILIRUBIN - TOTAL 0.28 mg/dL (0.2-1.3); CALCIUM 8.5 mg/dL (8.5-10.1); CARBON DIOXIDE 33.8 mmol/L (21.0-32.0); CREATININE - SERUM 0.9 mg/dL (0.6-1.3); PROTEIN - SERUM 8.3 g/dL (6.4-8.2)
[2019-04-22] MEDS ORDERED: ALBUTEROL SULF8.5 GM INH (00:23)
[2019-04-22 00:30] VITALS: BP 141/97
== END 2019-04-22 00:30 | disposition home or self-care (01) ==
LOC: D.ER 22:34
PROVIDERS: Family Medicine
DX: J45.901 Unspecified asthma with (acute) exacerbation (principal); J44.9 Chronic obstructive pulmonary disease, unspecified

== ENCOUNTER 2019-05-07 13:29 | Emergency (ER) | payer MEDICARE, OTHER ==
[~2019-05-07] VITALS: Ht 167.6 cm; Wt 39.5 kg
[~2019-05-07 13:29] MED LIST changes: +ALBUTEROL SULF8.5 GM INH
[2019-05-07 13:32] VITALS: Ht 167.6 cm; Wt 39.5 kg
[2019-05-07 14:16] LABS: BASOPHILS 0.4 % (0-2); EOSINOPHILS 0.4 % (0-7); HEMATOCRIT 35.6 % (36.0-48.0); HEMOGLOBIN 11.5 g/dL (12-16); IMMATURE GRANULOCYTES 1.2 % (0-5); LYMPHOCYTES 6.2 % (15-50); MCH 28.2 pg (26.0-34.0); MCHC 32.3 g/dL (31.0-37.0); MCV 87.3 fL (80.0-100.0); MEAN PLATELET VOLUME 8.5 fL (7.4-10.4); NEUTROPHILS 85.8 % (40-80); RBC 4.08 10x6/uL (4.00-5.40); RDW 15.2 % (11.5-14.5); WBC 9.3 10x3/uL (4.8-10.8)
[2019-05-07 14:30] LABS: PLATELET COUNT 349 10x3/uL (130-400)
[2019-05-07 14:52] LABS: ALBUMIN 2.1 g/dL (3.4-5.0); ALKALINE PHOSPHATASE 116 U/L (46-116); ALT (SGPT) 12 U/L (10-68); BILIRUBIN - TOTAL 0.27 mg/dL (0.2-1.3); CALC OSMOLALITY 266 mosm/kg (275-300); CALCIUM 8.5 mg/dL (8.5-10.1); CHLORIDE - SERUM 95 mmol/L (98-107); CREATININE - SERUM 0.6 mg/dL (0.6-1.3); GLUCOSE 120 mg/dL (74-106); POTASSIUM - SERUM 5.1 mmol/L (3.5-5.1); PROTEIN - SERUM 6.2 g/dL (6.4-8.2); SODIUM 131 mmol/L (136-145); UREA NITROGEN 20 mg/dL (7-18); eGFR NON AFRICAN AMERICAN > 90 mL/min (90-120)
[2019-05-07 14:58] LABS: CREATINE KINASE 80 UL (21-215)
[2019-05-07 15:00] LABS: TROPONIN-I < 0.017 ng/mL (0.000-0.060)
[2019-05-07 15:17] LABS: APPEARANCE CLEAR (CLEAR); BILIRUBIN NEGATIVE (NEGATIVE); COLOR YELLOW (YELLOW); GLUCOSE NEGATIVE (NEGATIVE); KETONE NEGATIVE (NEGATIVE); NITRITE NEGATIVE (NEGATIVE); PROTEIN TRACE mg/dL (NEGATIVE); SPECIFIC GRAVITY 1.015 (1.005-1.020); UROBILINOGEN NORMAL (NORMAL)
[2019-05-07 15:18] LABS: RED CELLS - URINE 0-5 /hpf (0-5); WHITE CELLS - URINE OCC /hpf (NEGATIVE)
[2019-05-07 15:19] LABS: BACTERIA FEW /hpf (NEGATIVE); EPITHELIAL CELLS 0-5 /hpf (0-5)
[2019-05-07] MEDS ORDERED: CHRONULAC30 ML PO (16:10)
[2019-05-07 16:51] VITALS: BP 04/72
== END 2019-05-07 16:53 | disposition home or self-care (01) ==
LOC: D.ER 13:29
PROVIDERS: Family Medicine
DX: E86.9 Volume depletion, unspecified (principal); K59.00 Constipation, unspecified; F17.210 Nicotine dependence, cigarettes, uncomplicated

== ENCOUNTER → 2019-05-17 10:17 | Outpatient (CLI) | payer MEDICARE, OTHER ==
[2019-05-07 13:32] VITALS: BMI 14.0
[~2019-05-17 10:17] MED LIST changes: +CHRONULAC30 ML PO; +PAROXETINE HCL10 MG PO
== END | disposition home or self-care (01) ==
LOC: D.CT 10:17
PROVIDERS: ATTEND Internal Medicine Hematology & Oncology
DX: Z85.118 Personal history of other malignant neoplasm of bronchus and lung (principal)

== ENCOUNTER 2019-06-07 18:09 | Emergency (ER) | payer MEDICARE, OTHER ==
[~2019-06-07] VITALS: Ht 167.6 cm; Wt 40.0 kg
[~2019-06-07 18:09] MED LIST changes: -PAROXETINE HCL10 MG PO
[2019-06-07 18:23] VITALS: BP 142/91; Ht 167.6 cm; Wt 40.0 kg
[2019-06-07] MEDS ORDERED: PAROXETINE HCL10 MG PO (18:25)
== END 2019-06-07 19:42 | disposition home or self-care (01) ==
LOC: D.ER 18:09
DX: R53.1 Weakness (principal); T43.225A Adverse effect of selective serotonin reuptake inhibitors, initial encounter; J44.9 Chronic obstructive pulmonary disease, unspecified; F17.210 Nicotine dependence, cigarettes, uncomplicated; C34.90 Malignant neoplasm of unspecified part of unspecified bronchus or lung; Z79.899 Other long term (current) drug therapy

== ENCOUNTER 2019-10-25 10:04 | Emergency (ER) | payer MEDICARE, OTHER ==
[~2019-10-25] VITALS: Ht 167.6 cm; Wt 43.2 kg
[~2019-10-25 10:04] MED LIST changes: +PAROXETINE HCL10 MG PO
[2019-10-25 10:11] VITALS: Ht 167.6 cm; Wt 43.2 kg
[2019-10-25] MEDS ORDERED: KEFLEX500 MG PO (10:35)
[2019-10-25] MEDS ORDERED: HYDROCODON-ACE1 EAC7 PO (10:35)
[2019-10-25 11:42] VITALS: BP 157/82
== END 2019-10-25 11:46 | disposition home or self-care (01) ==
LOC: D.ER 10:04
DX: J40 Bronchitis, not specified as acute or chronic (principal); J44.9 Chronic obstructive pulmonary disease, unspecified; Z72.0 Tobacco use; K21.9 Gastro-esophageal reflux disease without esophagitis; R07.89 Other chest pain; Z85.118 Personal history of other malignant neoplasm of bronchus and lung

== ENCOUNTER → 2019-11-30 12:05 | Outpatient (CLI) | payer MEDICARE, OTHER ==
[2019-10-25 10:11] VITALS: BMI 15.3
[~2019-11-30 12:05] MED LIST changes: +KEFLEX500 MG PO
== END | disposition home or self-care (01) ==
LOC: D.RAD 12:05
PROVIDERS: ATTEND Internal Medicine Hematology & Oncology
DX: C34.90 Malignant neoplasm of unspecified part of unspecified bronchus or lung (principal)

== ENCOUNTER → 2020-01-11 13:26 | Outpatient (CLI) | payer MEDICARE, OTHER ==
[2019-10-25 10:11] VITALS: BMI 15.3
== END | disposition home or self-care (01) ==
LOC: D.MRI 13:00
PROVIDERS: ATTEND Internal Medicine Hematology & Oncology
DX: C34.90 Malignant neoplasm of unspecified part of unspecified bronchus or lung (principal); J44.9 Chronic obstructive pulmonary disease, unspecified; E78.5 Hyperlipidemia, unspecified; Z72.0 Tobacco use; C79.51 Secondary malignant neoplasm of bone; K56.41 Fecal impaction; N63.11 Unspecified lump in the right breast, upper outer quadrant; C34.80 Malignant neoplasm of overlapping sites of unspecified bronchus and lung

== ENCOUNTER 2020-01-17 17:16 | Inpatient (IN) | payer MEDICARE, OTHER ==
[~2020-01-17] VITALS: Ht 167.6 cm; Wt 43.0 kg
[2020-01-17 18:28] LABS: BASOPHILS 0.1 % (0-2); EOSINOPHILS 0.1 % (0-7); HEMATOCRIT 32.5 % (36.0-48.0); HEMOGLOBIN 10.1 g/dL (12-16); IMMATURE GRANULOCYTES 0.3 % (0-5); LYMPHOCYTES 3.7 % (15-50); MCH 27.5 pg (26.0-34.0); MCHC 31.1 g/dL (31.0-37.0); MCV 88.6 fL (80.0-100.0); MEAN PLATELET VOLUME 9.4 fL (7.4-10.4); MONOCYTES 7.5 % (2-11); NEUTROPHILS 88.3 % (40-80); PLATELET COUNT 296 10x3/uL (130-400); RBC 3.67 10x6/uL (4.00-5.40); WBC 15.6 10x3/uL (4.8-10.8)
[2020-01-17 18:59] LABS: ALBUMIN 2.5 g/dL (3.4-5.0); ALKALINE PHOSPHATASE 64 U/L (30-120); ALT (SGPT) 16 U/L (10-68); BILIRUBIN - TOTAL 0.41 mg/dL (0.2-1.3); CALC OSMOLALITY 267 mosm/kg (275-300); CHLORIDE - SERUM 98 mmol/L (98-107); CKMB 0.9 U/L (0.0-3.6); CREATINE KINASE 70 UL (21-215); GLUCOSE 124 mg/dL (74-106); POTASSIUM - SERUM 4.1 mmol/L (3.5-5.1); PROTEIN - SERUM 7.1 g/dL (6.4-8.2); SODIUM 131 mmol/L (136-145); TROPONIN-I < 0.017 ng/mL (0.000-0.060); UREA NITROGEN 25 mg/dL (7-18); eGFR NON AFRICAN AMERICAN 58 mL/min (90-120)
[2020-01-17 19:04] LABS: BILIRUBIN NEGATIVE (NEGATIVE); GLUCOSE NEGATIVE (NEGATIVE); KETONE NEGATIVE (NEGATIVE); NITRITE NEGATIVE (NEGATIVE); UROBILINOGEN NORMAL (NORMAL)
[2020-01-17 19:22] LABS: INR 1.23 (0.85-1.17); PROTIME 15.4 SECONDS (11.6-15.0)
[2020-01-17 19:39] LABS: CALCIUM 16.8 mg/dL (8.5-10.1)
--- NOTE | 2020-01-17 20:24 | NUR ---
COVID SWAB TAKEN TO LAB
[2020-01-17 20:50] LABS: % SATURATION 7 % (15-55); IRON 12 ug/dl (35-150); TOTAL IRON BIND CAPACITY 165 ug/dl (260-445); UNSAT IRON BIND CAPACITY 153 ug/dl (150-375)
[2020-01-17 22:31] VITALS: BP 114/73
[2020-01-18 03:21] VITALS: BP 124/84
[2020-01-18 04:31] VITALS: BMI 13.3
[2020-01-18 07:06] LABS: ALBUMIN 2.3 g/dL (3.4-5.0); ANION GAP 6.2 mmol/L (8-16); BILIRUBIN - TOTAL 0.42 mg/dL (0.2-1.3); CARBON DIOXIDE 29.5 mmol/L (21.0-32.0); CREATININE - SERUM 0.9 mg/dL (0.6-1.3); HEMATOCRIT 32.1 % (36.0-48.0); HEMOGLOBIN 10.4 g/dL (12-16); LYMPHOCYTES 6.1 % (15-50); MAGNESIUM - SERUM 1.8 mg/dL (1.8-2.4); MCH 28.6 pg (26.0-34.0); MCHC 32.4 g/dL (31.0-37.0); MCV 88.2 fL (80.0-100.0); MEAN PLATELET VOLUME 9.3 fL (7.4-10.4); NEUTROPHILS 84.7 % (40-80); PLATELET COUNT 303 10x3/uL (130-400); POTASSIUM - SERUM 3.7 mmol/L (3.5-5.1); PROTEIN - SERUM 6.5 g/dL (6.4-8.2); RBC 3.64 10x6/uL (4.00-5.40); WBC 13.3 10x3/uL (4.8-10.8)
[2020-01-18 07:30] LABS: CALCIUM 14.9 mg/dL (8.5-10.1)
[2020-01-18 08:43] VITALS: BP 127/74
[2020-01-18 10:48] VITALS: BMI 13.3
[2020-01-18 11:24] VITALS: BP 131/67
[2020-01-18 13:27] VITALS: BP 134/72
[2020-01-18 16:39] VITALS: BP 138/68
--- NOTE | 2020-01-18 19:30 | NUR ---
PT IN BED, AAO X 2, RESP EVEN AND UNLABORED. NO DISTRESS NOTED, CL IN REACH, SR UP X 2.
[2020-01-18 20:00] VITALS: BP 123/74
[2020-01-19] VITALS: BP 134/81
[2020-01-19 04:00] VITALS: BP 124/80
[2020-01-19 04:23] LABS: BASOPHILS 0.1 % (0-2); EOSINOPHILS 0.2 % (0-7); HEMATOCRIT 29.6 % (36.0-48.0); HEMOGLOBIN 9.2 g/dL (12-16); IMMATURE GRANULOCYTES 0.2 % (0-5); MCH 27.4 pg (26.0-34.0); MCHC 31.1 g/dL (31.0-37.0); MCV 88.1 fL (80.0-100.0); MEAN PLATELET VOLUME 9.3 fL (7.4-10.4); MONOCYTES 7.7 % (2-11); NEUTROPHILS 85.8 % (40-80); PLATELET COUNT 300 10x3/uL (130-400); RBC 3.36 10x6/uL (4.00-5.40); WBC 12.7 10x3/uL (4.8-10.8)
[2020-01-19 04:54] LABS: ALBUMIN 2.2 g/dL (3.4-5.0); BILIRUBIN - TOTAL 0.4 mg/dL (0.2-1.3); CARBON DIOXIDE 28.4 mmol/L (21.0-32.0); CREATININE - SERUM 0.9 mg/dL (0.6-1.3); MAGNESIUM - SERUM 1.6 mg/dL (1.8-2.4); PHOSPHOROUS 1.9 mg/dL (2.5-4.9); PROTEIN - SERUM 6.4 g/dL (6.4-8.2)
[2020-01-19 04:58] LABS: ANION GAP 8.6 mmol/L (8-16); CALCIUM 12.9 mg/dL (8.5-10.1)
--- NOTE | 2020-01-19 07:55 | NUR ---
PT RECEIVED AWAKE AND ALERT. ASSISTED TO BEDPAN FOR VOID. RT IN ROOM FOR TREATMENT.
[2020-01-19 13:04] VITALS: BP 121/67
[2020-01-19 17:40] VITALS: BP 131/73
[2020-01-19 18:15] VITALS: BP 136/73
--- NOTE | 2020-01-19 19:30 | NUR ---
PT IN BED, AAO X 2, RESP EVEN AND UNLABORED, NO DISTRESS NOTED, CL IN REACH, SR UP X 2.
[2020-01-19 20:40] VITALS: BP 143/83
[2020-01-20 01:13] VITALS: BP 128/75
[2020-01-20 04:42] VITALS: BP 123/70
--- NOTE | 2020-01-20 05:00 | NUR ---
I have reviewed this patient and I concur with the Shift Assessment completed by the Licensed Practical Nurse today this shift.
[2020-01-20 05:52] LABS: BASOPHILS 0 % (0-2); EOSINOPHILS 0.4 % (0-7); IMMATURE GRANULOCYTES 0.1 % (0-5); LYMPHOCYTES 7.6 % (15-50); MCHC 32.1 g/dL (31.0-37.0); MCV 87.2 fL (80.0-100.0); MEAN PLATELET VOLUME 9.1 fL (7.4-10.4); MONOCYTES 9.3 % (2-11); NEUTROPHILS 82.6 % (40-80); PLATELET COUNT 285 10x3/uL (130-400); RBC 3.21 10x6/uL (4.00-5.40); RDW 14.6 % (11.5-14.5)
[2020-01-20 05:56] LABS: WBC 8.9 10x3/uL (4.8-10.8)
[2020-01-20 06:25] LABS: ALKALINE PHOSPHATASE 56 U/L (30-120); ALT (SGPT) 15 U/L (10-68); BILIRUBIN - TOTAL 0.38 mg/dL (0.2-1.3); CALC OSMOLALITY 262 mosm/kg (275-300); CALCIUM 11.7 mg/dL (8.5-10.1); CARBON DIOXIDE 26.8 mmol/L (21.0-32.0); CHLORIDE - SERUM 100 mmol/L (98-107); CREATININE - SERUM 0.8 mg/dL (0.6-1.3); GLUCOSE 78 mg/dL (74-106); MAGNESIUM - SERUM 1.5 mg/dL (1.8-2.4); POTASSIUM - SERUM 3.4 mmol/L (3.5-5.1); PROTEIN - SERUM 5.5 g/dL (6.4-8.2); SODIUM 132 mmol/L (136-145); eGFR NON AFRICAN AMERICAN 75 mL/min (90-120)
[2020-01-20 06:27] LABS: PHOSPHOROUS 1.2 mg/dL (2.5-4.9); UREA NITROGEN 10 mg/dL (7-18)
--- NOTE | 2020-01-20 07:31 | NUR ---
PT RECEIVED AWAKE AND ALERT. ASKING FOR PAIN MED. GETTING UPDRAFT AT PRESENT.
[2020-01-20 08:00] VITALS: BP 97/64
[2020-01-20 12:00] VITALS: BP 98/57
[2020-01-20 16:00] VITALS: BP 110/68
--- NOTE | 2020-01-20 19:30 | NUR ---
PT IN BED, AAO X 2, RESP EVEN AND UNLABORED. NO DISTRESS NOTED, CL IN REACH, SR UP X 2.
[2020-01-20 20:00] VITALS: BP 106/62
[2020-01-21 04:00] VITALS: BP 117/60
--- NOTE | 2020-01-21 04:00 | NUR ---
I have reviewed this patient and I concur with the Shift Assessment completed by the Licensed Practical Nurse today this shift.
[2020-01-21 05:15] LABS: BASOPHILS 0.1 % (0-2); EOSINOPHILS 1.2 % (0-7); HEMATOCRIT 27.7 % (36.0-48.0); HEMOGLOBIN 8.8 g/dL (12-16); IMMATURE GRANULOCYTES 0.5 % (0-5); LYMPHOCYTES 8.6 % (15-50); MCH 27.7 pg (26.0-34.0); MCHC 31.8 g/dL (31.0-37.0); MCV 87.1 fL (80.0-100.0); MEAN PLATELET VOLUME 9.2 fL (7.4-10.4); MONOCYTES 10.1 % (2-11); NEUTROPHILS 79.5 % (40-80); PLATELET COUNT 298 10x3/uL (130-400); RBC 3.18 10x6/uL (4.00-5.40); RDW 14.7 % (11.5-14.5); WBC 7.3 10x3/uL (4.8-10.8)
[2020-01-21 05:42] LABS: ALBUMIN 2.1 g/dL (3.4-5.0); ANION GAP 6.6 mmol/L (8-16); BILIRUBIN - TOTAL 0.34 mg/dL (0.2-1.3); CALCIUM 11.2 mg/dL (8.5-10.1); CARBON DIOXIDE 26.4 mmol/L (21.0-32.0); CREATININE - SERUM 0.9 mg/dL (0.6-1.3); MAGNESIUM - SERUM 1.4 mg/dL (1.8-2.4); PROTEIN - SERUM 5.8 g/dL (6.4-8.2)
[2020-01-21 05:50] LABS: PHOSPHOROUS 1.1 mg/dL (2.5-4.9)
[2020-01-21 09:39] VITALS: BP 114/66
--- NOTE | 2020-01-21 11:37 | NUR ---
DR ARCINIEGA ON UNIT. NEW ORDERS RECEIVED.
[2020-01-21 12:11] VITALS: BP 104/64
[2020-01-21 12:42] VITALS: Ht 167.6 cm; Wt 43.0 kg
--- NOTE | 2020-01-21 13:45 | NUR ---
PATIENT IS STABLE AND VSS. PATIENT TO MRI V IA WC ACCOMPANIED BY MRI STAFF.
--- NOTE | 2020-01-21 14:00 | NUR ---
REICEVED PHONE CALL FROM [employer]OV[employer] CONSULTANT. PATIENT IS COMPLAINING OF EXCRUCIATING PAIN TO HIP AND UNABLE TO LAY FLAT FOR MRI. CALLED DR SAUCEDA AND RECEIVED ONE TIME ORDER OF DILAUDED 1 MG IV.
--- NOTE | 2020-01-21 14:26 | NUR ---
PATIENT IN MRI. ADMINISTERED DILAUDED 1 MG IV SLOW PUSH PER OCT ORDER. PATIENT TOLERATED WELL AND NOW RESTING COMFORTABLY.
--- NOTE | 2020-01-21 16:13 | MORECARE ---
CASE MANAGEMENT DISCHARGE SUMMARY PATIENT: ELISSA PEMBERTON UNIT: [id number] ADM DATE: 01/17/20 AGE: 69 : 49 SEX: F ROOM/BED: D.5844 AUTHOR: JOSE GEORGE PHYSICIAN: REFERRING PHYSICIAN: VINCENT MILLER MD DATE OF SERVICE: 01/21/20 Discharge Plan Patient Name: ELISSA PEMBERTON [facility] [facility] 1950 Planned Disposition: Anticipated Discharge Date: Discharge Date: Expected LOS: Initial Reviewer: [email or web address] Initial Review Date: 01/17/2020 Generated: 01/21/20 5:12 pm Comments DCP- Discharge Planning Updated by [email or web address]: Henny Rodriguez on 01/21/20 3:[address] CM ATTEMPTED TO MEET WITH PATIENT MULTIPLE TIMES TO OBTAIN ASSESSMENT. CM WILL MEET WITH PT PER REQUEST Wednesday01/22/20 AM. CM WILL CONTINUE TO FOLLOW AND ASSIST NEEDED. HENNY RODRIGUEZ MSN,RN,CM Patient Name: ELISSA PEMBERTON Page [phone] at 1613 All edits/amendments must be made on the electronic document DICTATION DATE: 01/21/201612 CLASSIFICATIONS OFFICER CC/CM: KRISTA 01/21/201612 RPT#: [id number] DC DATE: STATUS: ADM IN [facility] [address] [place] [address] END OF REPORT
[2020-01-21 16:18] VITALS: BP 125/73
--- NOTE | 2020-01-21 16:45 | NUR ---
PATIENT HAVING OCCASIONAL, NON PRODUCTIVE COUGH UNABLE TO OBTAIN SPUTUM SPECIMEN AT THIS TIME.
--- NOTE | 2020-01-21 19:01 | NUR ---
AWAKE AND ALERT MANY NEEDS SEEN TOO CALL LIGHT IN RECH BED LOW AND LOCKED
[2020-01-21 20:00] VITALS: BP 108/60
--- NOTE | 2020-01-22 03:13 | NUR ---
I have reviewed this patient and I concur with the Shift Assessment completed by the Licensed Practical Nurse today this shift.
[2020-01-22 07:12] LABS: BASOPHILS 0.1 % (0-2); EOSINOPHILS 0.4 % (0-7); HEMATOCRIT 28.7 % (36.0-48.0); HEMOGLOBIN 9.1 g/dL (12-16); IMMATURE GRANULOCYTES 0.2 % (0-5); MCH 27.6 pg (26.0-34.0); MCHC 31.7 g/dL (31.0-37.0); MEAN PLATELET VOLUME 9.1 fL (7.4-10.4); MONOCYTES 8.4 % (2-11); NEUTROPHILS 85.9 % (40-80); PLATELET COUNT 283 10x3/uL (130-400); RDW 14.7 % (11.5-14.5)
[2020-01-22 07:13] LABS: ALBUMIN 2.1 g/dL (3.4-5.0); ALKALINE PHOSPHATASE 55 U/L (30-120); ALT (SGPT) 15 U/L (10-68); BILIRUBIN - TOTAL 0.32 mg/dL (0.2-1.3); CALC OSMOLALITY 263 mosm/kg (275-300); CALCIUM 10.9 mg/dL (8.5-10.1); CARBON DIOXIDE 28.2 mmol/L (21.0-32.0); CHLORIDE - SERUM 101 mmol/L (98-107); CREATININE - SERUM 0.7 mg/dL (0.6-1.3); GLUCOSE 84 mg/dL (74-106); MAGNESIUM - SERUM 1.4 mg/dL (1.8-2.4); POTASSIUM - SERUM 3.4 mmol/L (3.5-5.1); PROTEIN - SERUM 6.1 g/dL (6.4-8.2); SODIUM 134 mmol/L (136-145); WBC 13.5 10x3/uL (4.8-10.8); eGFR NON AFRICAN AMERICAN 88 mL/min (90-120)
[2020-01-22 07:47] LABS: UREA NITROGEN 5 mg/dL (7-18)
[2020-01-22 07:51] LABS: PHOSPHOROUS 1.5 mg/dL (2.5-4.9)
[2020-01-22 09:52] VITALS: BP 90/57
--- NOTE | 2020-01-22 11:05 | NUR ---
PT STATES TO ME NORCO AND TRMADOL IS NOT HE;PING HER PAIN AND WANTS IV PAIN MEDICATION. CALLED AND SPOKE WITH PERRY MIXON AND SHE STATES TO D/C TRAMADOL AND NORCO AND ORDER DILAUDID METAL CASTER STANDARD DOSE. I VERBALIZED UNDERSTANDING.
[2020-01-22 13:56] VITALS: BP 94/50
--- NOTE | 2020-01-22 14:35 | NUR ---
Nutrition Follow-up: NPO for gamma nailing of L hip today. Wt: 82# (01/19) Labs noted: Na 134, K+ 3.4, Ca 10.9, PO4 1.5, Mg 1.4, Alb 2.1 Meds noted: Prednisone, Protonix, NS @ 50, electrolyte protocol -Rec resume diet when medically feasible; offer nutrition supplements. -Need new wt; noted daily wts ordered. -RD following.
--- NOTE | 2020-01-22 14:42 | NUR ---
PT TAKEN TO SX VIA BED.
--- NOTE | 2020-01-22 14:45 | NUR ---
I have reviewed this patient and I concur with the Shift Assessment completed by the Licensed Practical Nurse today this shift.
--- NOTE | 2020-01-22 17:08 | NUR ---
SPOKE WITH FREDA VALERIO SHE STATES SHE WILL GET PHOSPHORUS BAG MADE.
[2020-01-22 17:10] VITALS: BP 106/48
--- NOTE | 2020-01-22 17:10 | NUR ---
PT ARRIVED TO FLOOR VIA BED. ALERT AND ORIENTED. ON ROOM AIR. VS STABLE. LEFT HIP DRESSING C/D/I. PT'S AT BEDSIDE. BED LOW. CL IN REACH. WILL COTNINUE TO MONITOR.
[2020-01-22 17:25] VITALS: BP 112/89
[2020-01-22 17:40] VITALS: BP 104/82
--- NOTE | 2020-01-22 18:06 | NUR ---
ICE PACK PLACED ON LEFT HIP.
--- NOTE | 2020-01-22 18:44 | NUR ---
ICE PACK PLACED ON LEFT HIP. DRESSING C/D/I.
--- NOTE | 2020-01-22 19:58 | NUR ---
PT IS CONFUSED TRYING TO "BREATH IN" ON THE PCAQ BOTTOM AND DOES NOT COMPREHEND USE OF BED CASTILLO
--- NOTE | 2020-01-22 22:01 | NUR ---
PT REMAINS CONFUSED WANTING TO GET OUT OF BED NOTED SOME BLEED THROUGH TO DRSG ON LEFT HIP
[2020-01-22 22:05] VITALS: BP 107/68
[2020-01-23] VITALS (7 sets, daily range): BP systolic 102–129; BP diastolic 49–76
[2020-01-23 06:16] LABS: BASOPHILS 0.1 % (0-2); EOSINOPHILS 0 % (0-7); HEMATOCRIT 26.5 % (36.0-48.0); HEMOGLOBIN 8.3 g/dL (12-16); IMMATURE GRANULOCYTES 0.4 % (0-5); LYMPHOCYTES 5.2 % (15-50); MCH 27.3 pg (26.0-34.0); MCHC 31.3 g/dL (31.0-37.0); MCV 87.2 fL (80.0-100.0); MEAN PLATELET VOLUME 9.1 fL (7.4-10.4); MONOCYTES 8.1 % (2-11); NEUTROPHILS 86.2 % (40-80); PLATELET COUNT 276 10x3/uL (130-400); RBC 3.04 10x6/uL (4.00-5.40); RDW 14.9 % (11.5-14.5)
[2020-01-23 06:44] LABS: MAGNESIUM - SERUM 1.4 mg/dL (1.8-2.4)
[2020-01-23 06:46] LABS: PHOSPHOROUS 2.3 mg/dL (2.5-4.9)
--- NOTE | 2020-01-23 12:56 | OP ---
PATIENT NAME: ELISSA PEMBERTON MEDICAL RECORD: [id number] :48 LOCATION:D.M2 D.2134 ADMISSION DATE:01/17/20 SURGEON: MARIELA SAUCEDA MD DATE OF OPERATION: 01/22/2020 PREOPERATIVE DIAGNOSIS: Impending pathologic fracture of the right proximal femur -- intertrochanteric region. POSTOPERATIVE DIAGNOSIS: Impending pathologic fracture of the right proximal femur -- intertrochanteric region. PROCEDURE: Cephalomedullary fixation for impending pathologic fracture. SURGEON: Mariela Sauceda MD ANESTHESIA: General. INTRAOPERATIVE COMPLICATIONS: None. SUMMARY OF PATHOLOGIC FINDINGS: Essentially none. 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 OPERATIVE SUMMARY IN DETAIL: After obtaining the appropriate preoperative orthopedic surgery consent as well as anesthetic consultation, evaluation and clearance, the patient was brought to the operating room and placed on the operating table in supine position. After general laryngeal mask airway was administered, the patient was placed on the fracture table. She was held firmly to the fracture table. The left leg was placed in the traction boot. No traction was applied. The right leg was placed in the well leg cochran. Fluoroscopy was brought in to say that no fracture had occurred at this point and it did not appear such, only cortical erosions that had been seen on MRI. Hip was prepped and draped in routine sterile fashion. Incision was made at the tip of the greater trochanter. An awl was used to make an entry point for ball-tipped guidewire. Reaming was done over the ball-tipped guidewire. Care was taken to use sterile water for irrigation. Having completed this, the gamma nail was inserted to the appropriate depth as seen on C-arm. Guide pin was placed in a center-center position to approximately 2.5 cm beneath this cortical articular surface. The compression screw was then placed again under fluoroscopy to the appropriate depth. Mild amount of traction was placed across it. The derotational screw was then deployed. Having completed this, distal interlocking screw was placed again under fluoroscopy utilized the distal targeting device for the gamma 3 system. Having completed this, final radiographs were taken and submitted for radiologist review. Wounds were copiously irrigated with sterile water, closed with #2-0 Vicryl and skin with yasemin. Sterile dressings were applied. The patient was awakened, taken to the recovery room in stable condition. All final needle and sponge counts were correct. TRANSINT:[id number] Voice Confirmation ID: [id number] DOCUMENT ID: [id number] OPERATIVE REPORT [id number] ELISSA PEMBERTON MD, MARIELA SCHREIBER at 1256 CC: [id number] DICTATION DATE: 01/22/20 1641 SANITARY LANDFILL OPERATOR: 01/23/20 0049 ADM IN [facility] [address] [id number]
--- NOTE | 2020-01-23 13:04 | NUR ---
OT NOTE: PT SEEN TODAY FOLLOWING L ORIF YESTERDAY. PT WANTING TO USE BATHROOM, BUT WAS UNDECISIVE ON WHETHER SHE WANTED BED CASTILLO OR BS COMMODE; PROVIDED WITH BS COMMODE. PT CONTINUOUSLY STATING " YOU BETTER HURRY OR YOU WILL HAVE A MESS IN THIS BED", HOWEVER, WHEN ATTEMPTING TO HELP PT, SHE STATED, "DONT HELP ME, IM DOING IT MYSELF".? PT WAS ABLE TO PERFORM SUPINE TO SIT WITH BED RAILS AND NO PHYSICAL ASSIST BUT WITH EXTENDED AMOUNT OF TIME; TRANSFERRED WITH CGA AND EXT TIME; MOD ASSIST FOR TOILET HYGIENE; MAX ASSIST FOR DONNING SOCKS; EOB SITTING WITH GOOD BALANCE; SIMPLE GROOMING WITH SETUP; BACK TO BED WITHOUT ASSIST AND EXT TIME HUMERA KAMARA, OTR/L [phone]
--- NOTE | 2020-01-23 17:53 | NUR ---
OT NOTE: (AM) PT COMPLETED SIDE ROLLING WITH MIN/MOD A. PT COMPLETD SUPINE TO SIT WITH MIN/MOD A. PT COMPLETED TOILET HYGIENE WITH MOD A. (PM) PT COMPLETED SIDE ROLLING WITH MIN A. PT COMPLETED POSITONING WITH MOD A. PT COMPLETED UE AROM AX WITH FUNCTIONAL TASKS. [phone] MIGUEL REYES COTA
[2020-01-23 18:01] LABS: CALC OSMOLALITY 264 mosm/kg (275-300); CALCIUM 9.9 mg/dL (8.5-10.1); CARBON DIOXIDE 24.7 mmol/L (21.0-32.0); CHLORIDE - SERUM 98 mmol/L (98-107); CREATININE - SERUM 0.8 mg/dL (0.6-1.3); GLUCOSE 91 mg/dL (74-106); POTASSIUM - SERUM 3.7 mmol/L (3.5-5.1); SODIUM 132 mmol/L (136-145); eGFR NON AFRICAN AMERICAN 75 mL/min (90-120)
[2020-01-23 18:02] LABS: UREA NITROGEN 12 mg/dL (7-18)
--- NOTE | 2020-01-23 19:10 | NUR ---
ALERT AND OX4 AT THIS TIME SMALL BLEED THROUGH BED LOW AND LOCKED WITH PT IN ROOM WITH CALL LIGHT
--- NOTE | 2020-01-23 22:15 | NUR ---
ASSISTED UP TO BSC SLOW BUT MAYRA WELL
[2020-01-24] VITALS: BP 105/61
[2020-01-24 04:00] VITALS: BP 107/59
[2020-01-24 06:20] LABS: BASOPHILS 0.1 % (0-2); EOSINOPHILS 0.1 % (0-7); HEMATOCRIT 27.9 % (36.0-48.0); HEMOGLOBIN 9.1 g/dL (12-16); IMMATURE GRANULOCYTES 0.7 % (0-5); LYMPHOCYTES 7.9 % (15-50); MCH 28.4 pg (26.0-34.0); MCHC 32.6 g/dL (31.0-37.0); MCV 87.2 fL (80.0-100.0); MEAN PLATELET VOLUME 9.1 fL (7.4-10.4); MONOCYTES 7.4 % (2-11); NEUTROPHILS 83.8 % (40-80); PLATELET COUNT 271 10x3/uL (130-400); RDW 14.9 % (11.5-14.5); WBC 11.1 10x3/uL (4.8-10.8)
[2020-01-24 06:54] LABS: CALC OSMOLALITY 270 mosm/kg (275-300); CALCIUM 10.2 mg/dL (8.5-10.1); CARBON DIOXIDE 26.3 mmol/L (21.0-32.0); CHLORIDE - SERUM 102 mmol/L (98-107); CREATININE - SERUM 0.6 mg/dL (0.6-1.3); GLUCOSE 129 mg/dL (74-106); MAGNESIUM - SERUM 1.6 mg/dL (1.8-2.4); POTASSIUM - SERUM 3.4 mmol/L (3.5-5.1); SODIUM 134 mmol/L (136-145); eGFR NON AFRICAN AMERICAN > 90 mL/min (90-120)
[2020-01-24 07:00] LABS: PHOSPHOROUS 1.6 mg/dL (2.5-4.9); UREA NITROGEN 16 mg/dL (7-18)
--- NOTE | 2020-01-24 07:10 | NUR ---
REPORT RECEIVED FROM AVIATION ELECTRICAL TECHNICIAN AND PATIENT CARE ASSUMED. PATIENT LAYING IN BED ON BACK AWAKE, ALERT AND ORIENTED X4 . PATIENT IS STABLE AND VSS. PATIENT UP TO BS COMMODE. PATIENT TOLERATED WELL. PATIENT DENIES ANY NEEDS OR PAIN. WILL CONTINUE WITH PLAN OF CARE. SR UPX 2 BED IN LOW POSITION AND CALL LIGHT IN REACH.
--- NOTE | 2020-01-24 10:14 | NUR ---
REHAB PRESCREENING CONSULT RECIEVED AND THE CHART HAS BEEN REVIEWED. SHE MEETS CRITERIA FOR THE ARU. UNSURE OF THE TREATMENT PLAN FOR HER NEW DX OF BONE METS, BUT SHE CAN COME TO THE ARU FOR STRENGTHENING PRIOR TO DC HOME, IF SHE CHHOSES TO. DISCUSSED WITH HER CM HENNY RODRIGUEZ RN. SHE IS POD #2 ORIF OF THE HIP. PEYTON FONG RN CLINICAL LIAISON, REHAB
--- NOTE | 2020-01-24 11:07 | NUR ---
PATIENT UP TO BS COMMODE. WILL CONTINUE TO MONITOR.
[2020-01-24] MEDS ORDERED: MUCINEX600 MG PO (11:59)
[2020-01-24] MEDS ORDERED: MAXIPIME 2 GM/D52 G1 IV (12:00)
[2020-01-24] MEDS ORDERED: PREDNISONE20 MG PO (12:01)
[2020-01-24] MEDS ORDERED: Vibramycin 100 MG/D5 IV (12:01)
--- NOTE | 2020-01-24 12:27 | MORECARE ---
CASE MANAGEMENT DISCHARGE SUMMARY PATIENT: ELISSA PEMBEROTN UNIT: [id number] ADM DATE: 01/17/20 AGE: 69 : 49 SEX: F ROOM/BED: D.7726 AUTHOR: JOSE GEORGE PHYSICIAN: REFERRING PHYSICIAN: VINCENT MILLER MD DATE OF SERVICE: 01/24/20 Discharge Plan Patient Name: ELISSA PEMBERTON Facility: [facility]:[place] : 1950 Planned Disposition: Inpatient Rehab Anticipated Discharge Date: Discharge Date: Expected LOS: 0 Initial Reviewer: [email or web address] Initial Review Date: 01/17/2020 Generated: 01/24/20 1:26 pm Comments DCP- Discharge Planning Updated by [email or web address]: Henny Rodriguez on 01/21/20 3:[address] CM ATTEMPTED TO MEET WITH PATIENT MULTIPLE TIMES TO OBTAIN ASSESSMENT. CM WILL MEET WITH PT PER REQUEST Wednesday01/22/20 AM. CM WILL CONTINUE TO FOLLOW AND ASSIST NEEDED. HENNY RODRIGUEZ MSN,RN,CM DCPIA - Discharge Planning Initial Assessment Updated by [email or web address]: Henny Rodriguez on 01/24/20 12:25 pm * Is the patient Alert and Oriented? Yes * How many steps to enter\exit or inside your home? 1/0 * PCP MALDONADO * Pharmacy [facility] * Preadmission Environment Home with Family * Partial ADLs (Assistance needed) Medication Management Toileting * Equipment Rolling Walker Shower Chair * List name and contact numbers for known caregivers / representatives who currently or will assist patient after discharge: RHODA ( AT BEDSIDE) * Verbal permission to speak to the caregivers and representatives has been obtained from the patient. Yes * Community resources currently utilized None * Additional services required to return to the preadmission environment? Yes * Can the patient safely return to the preadmission environment? Yes * Has this patient been hospitalized within the prior 30 days at any hospital? No Last DP export: 01/21/20 3:13 p Patient Name: ELISSA PEMBERTON Page [phone] at 1227 All edits/amendments must be made on the electronic document DICTATION DATE: 01/24/20 1226 CNC MECHANIC: KRISTA 01/24/20 1226 RPT#: [id number] DC DATE: STATUS: ADM IN [facility] [address] [place] [address] END OF REPORT
--- NOTE | 2020-01-24 12:43 | MORECARE ---
CASE MANAGEMENT DISCHARGE SUMMARY PATIENT: ELISSA PEMBERTON UNIT: [id number] ADM DATE: 01/17/20 AGE: 69 : 49 SEX: F ROOM/BED: D.4406 AUTHOR: JOSE GEORGE PHYSICIAN: REFERRING PHYSICIAN: VINCENT MILLER MD DATE OF SERVICE: 01/24/20 Discharge Plan Patient Name: ELISSA PEMBERTON Facility: [facility]:[place] : 1950 Planned Disposition: Inpatient Rehab Anticipated Discharge Date: Discharge Date: Expected LOS: 0 Initial Reviewer: [email or web address] Initial Review Date: 01/17/2020 Generated: 01/24/20 1:42 pm Comments DCP- Discharge Planning Updated by [email or web address]: Henny Rodriguez on 01/24/20 11:[address] Patient Name: ELISSA PEMBERTON Admission Status: ER Accout number: [id number] Admission Date: 01-17-2020 : 1950 Admission Diagnosis:PNEUMONIA, UNSPECIFIED ORGANISM Attending: VINCENT MILLER Current LOS: 7 Anticipated DC Date: Planned Disposition: Inpatient Rehab Primary Insurance: MEDICARE A & B Discharge Planning Comments: CM met with patient to complete initial dc planning assessment. CM educated patient on the CM role and verbal consent given by patient to complete assessment. CM verified patient's address, phone number, and emergency contact phone numbers. Patient lives at home with her , Rhoda. CM discussed availability of home health, rehab services, and medical equipment. The patient has a rollator and a shower chair. She requests to have a bedside commode. Pt and Rhoda are requesting to go to IP rehab at [facility], and would like to have home health. ALISSON signed for [facility], [facility] , and DME with [facility]. Transportation provider at discharge will be her . CM will continue to follow and will assist as needed with dc plans/needs. CM spoke with Asuncion from Rehab. They have accepted her into rehab. Pt and family are in agreement with plan. No changes. DC IMM delivered, explained, signed by the patient, and placed in chart. Signed form also left with the patient. Cyber Security Manager: Henny Rodriguez MSN,RN,CM DCP- Discharge Planning Updated by [id number]: Henny Rodriguez on 01/21/20 3:[address] CM ATTEMPTED TO MEET WITH PATIENT MULTIPLE TIMES TO OBTAIN ASSESSMENT. CM WILL MEET WITH PT PER REQUEST Wednesday01/22/20 AM. CM WILL CONTINUE TO FOLLOW AND ASSIST NEEDED. HENNY RODRIGUEZ MSN,RN,CARLOS DCPIA - Discharge Planning Initial Assessment Updated by [email or web address]: Henny Rodriguez on 01/24/20 12:25 pm * Is the patient Alert and Oriented? Yes * How many steps to enter\exit or inside your home? 1/0 * PCP MALDONADO * Pharmacy [facility] * Preadmission Environment Home with Family * Partial ADLs (Assistance needed) Medication Management Toileting * Equipment Rolling Walker Shower Chair * List name and contact numbers for known caregivers / representatives who currently or will assist patient after discharge: RHODA ( AT BEDSIDE) * Verbal permission to speak to the caregivers and representatives has been obtained from the patient. Yes * Community resources currently utilized None * Additional services required to return to the preadmission environment? Yes * Can the patient safely return to the preadmission environment? Yes * Has this patient been hospitalized within the prior 30 days at any hospital? No Last DP export: 01/24/20 11:27 a Patient Name: ELISSA PEMBERTON Page [phone] at 1243 All edits/amendments must be made on the electronic document DICTATION DATE: 01/24/201241 CONTACT REPRESENTATIVE: KRISTA 01/24/20 1242 RPT#: [id number] DC DATE: STATUS: ADM IN [facility] [address] [place] [address] END OF REPORT
--- NOTE | 2020-01-24 14:40 | NUR ---
LEFT HIP DRESSING CHANGED. CLIPS NOTED, DRY DRAINAGE ON DRESSING BUT INCISION DRY. LEFT PORT DRESSING ALSO CHANGED. TELEMETRY REMOVED PRIOR TO PT BEING TRANSFERRED TO REHAB.
--- NOTE | 2020-01-24 16:20 | NUR ---
OT NOTE: PT COMPLETED SUPINE TO SIT WITH MINIMAL A. PT COMPLETED SIT TO STAND WITH CGA. PT COMPELTED BUE AROM AXS AT EOB. PT EXHIBITED INCREASED I WITH FUNCTIONAL TASKS. [phone] MIGUEL REYES COTA
[2020-01-24] MEDS ORDERED: DURAGESIC1 EAC5 TOPICAL (17:21)
[2020-01-24] MEDS ORDERED: ELIQUIS2.5 MG PO (17:26)
[2020-01-24] MEDS ORDERED: FLORAJEN3 CAPS460 MG PO (17:28)
--- NOTE | 2020-01-24 19:52 | MORECARE ---
CASE MANAGEMENT DISCHARGE SUMMARY PATIENT: ELISSA PEMBERTON UNIT: [id number] ADM DATE: 01/17/20 AGE: 69 : 49 SEX: F ROOM/BED: D.4298 AUTHOR: JOSE GEORGE PHYSICIAN: REFERRING PHYSICIAN: VINCENT MILLER MD DATE OF SERVICE: 01/24/20 Discharge Plan Patient Name: ELISSA PEMBERTON Facility: [facility]:[place] : 1950 Planned Disposition: Inpatient Rehab Anticipated Discharge Date: Discharge Date: 01/24/2020 Expected LOS: 0 Initial Reviewer: [email or web address] Initial Review Date: 01/17/2020 Generated: 01/24/20 8:51 pm Comments DCP- Discharge Planning Updated by [email or web address]: Henny Alcantara on 01/24/20 11:[address] Patient Name: ELISSA PEMBERTON Admission Status: ER Accout number: [id number] Admission Date: 01-17-2020 : 1950 Admission Diagnosis:PNEUMONIA, UNSPECIFIED ORGANISM Attending: VINCENT MILLER Current LOS: 7 Anticipated DC Date: Planned Disposition: Inpatient Rehab Primary Insurance: MEDICARE A & B Discharge Planning Comments: CM met with patient to complete initial dc planning assessment. CM educated patient on the CM role and verbal consent given by patient to complete assessment. CM verified patient's address, phone number, and emergency contact phone numbers. Patient lives at home with her , Rhoda. CM discussed availability of home health, rehab services, and medical equipment. The patient has a rollator and a shower chair. She requests to have a bedside commode. Pt and Rhoda are requesting to go to IP rehab at [facility], and would like to have home health. ALISSON signed for [facility], [facility] , and DME with [employer]. Transportation provider at discharge will be her . CM will continue to follow and will assist as needed with dc plans/needs. CM spoke with Asuncion from Rehab. They have accepted her into rehab. Pt and family are in agreement with plan. No changes. DC IMM delivered, explained, signed by the patient, and placed in chart. Signed form also left with the patient. Resistance Welder: Henny Alcantara MSN,RN,CM DCP- Discharge Planning Updated by [email or web address]: Henny Alcantara on 01/21/20 3:[address] CM ATTEMPTED TO MEET WITH PATIENT MULTIPLE TIMES TO OBTAIN ASSESSMENT. CM WILL MEET WITH PT PER REQUEST Wednesday01/22/20 AM. CM WILL CONTINUE TO FOLLOW AND ASSIST NEEDED. HENNY BUCHANAN,RN,CARLOS DCPIA - Discharge Planning Initial Assessment Updated by [email or web address]: Henny Alcantara on 01/24/20 12:25 pm * Is the patient Alert and Oriented? Yes * How many steps to enter\exit or inside your home? 1/0 * PCP MALDONADO * Pharmacy [facility] * Preadmission Environment Home with Family * Partial ADLs (Assistance needed) Medication Management Toileting * Equipment Rolling Walker Shower Chair * List name and contact numbers for known caregivers / representatives who currently or will assist patient after discharge: RHODA ( AT BEDSIDE) * Verbal permission to speak to the caregivers and representatives has been obtained from the patient. Yes * Community resources currently utilized None * Additional services required to return to the preadmission environment? Yes * Can the patient safely return to the preadmission environment? Yes * Has this patient been hospitalized within the prior 30 days at any hospital? No Coverage Notice Reviewer: [email or web address] Rylee Alcantara Notice Issued Date-Time: 01/24/2020 10:30 Notice Type: IM Discharge Notice Notice Delivered To: Patient Relationship to Patient: Swiss Machinist Name: Delivery Method: HAND - Hand Delivered Ilana Days: Prior Verbal Notification: Recipient Understood Notice: Yes Recipient Signature: Yes Med Rec Note Co-signed by Attending: Coverage Notice Comment: DC IMM delivered, explained, signed by the patient, and placed in chart. Signed form also left with the patient. Reviewer: [email or web address] Rylee Alcantara Notice Issued Date-Time: 01/24/2020 10:30 Notice Type: Patient Choice Letter Notice Delivered To: Patient Relationship to Patient: Swiss Machinist Name: Delivery Method: HAND - Hand Delivered Ilana Days: Prior Verbal Notification: Recipient Understood Notice: Yes Recipient Signature: Yes Med Rec Note Co-signed by Attending: Coverage Notice Comment: choice signed for [facility] rehab, [facility] , bedside potty from [facility] Last DP export: 01/24/20 11:43 a Patient Name: ELISSA PEMBERTON Page [phone] at 2 All edits/amendments must be made on the electronic document DICTATION DATE: 01/24/201950 PRESSURE DISPATCHER: KRISTA 01/24/201950 RPT#: [id number] DC DATE:01/24/20 STATUS: DIS IN [facility] [address] [place] [address] END OF REPORT
== END 2020-01-24 16:01 | DRG 853 ==
LOC: D.ER 17:16 → D.M2 19:55
PROVIDERS: Emergency Medicine; Family Medicine; Orthopaedic Surgery; ADMIT Family Medicine; ATTEND Family Medicine
PROC: 0QH704Z Insertion of Internal Fixation Device into Left Upper Femur, Open Approach (ICD-10-PCS; principal; 2020-01-22 14:00)
DX: A41.9 Sepsis, unspecified organism (principal); J18.9 Pneumonia, unspecified organism; G93.41 Metabolic encephalopathy; C34.90 Malignant neoplasm of unspecified part of unspecified bronchus or lung; F17.203 Nicotine dependence unspecified, with withdrawal; J44.0 Chronic obstructive pulmonary disease with (acute) lower respiratory infection; E87.1 Hypo-osmolality and hyponatremia; E44.0 Moderate protein-calorie malnutrition; E86.0 Dehydration; D64.9 Anemia, unspecified; E83.52 Hypercalcemia; K21.9 Gastro-esophageal reflux disease without esophagitis; F41.9 Anxiety disorder, unspecified; Z91.81 History of falling

== ENCOUNTER 2020-01-24 16:26 | Inpatient (IN) | payer MEDICARE, OTHER ==
[~2020-01-24] VITALS: Ht 167.6 cm; Wt 41.7 kg
--- NOTE | 2020-01-24 | NUR ---
TOOK PT BR. SHE IS SBA TO GET INTO HER WHEELCHAIR AND SBA TO TRANSFER TO TOILET. NO C/O OR NEEDS NOW
--- NOTE | 2020-01-24 16:00 | NUR ---
PT ARRIVED IN ROOM 1112B.ORIENTED TO ROOM AND SURROUNDINGS.CL IN REACH.
[~2020-01-24 16:26] MED LIST changes: +MAXIPIME 2 GM/D52 G1 IV; +MUCINEX600 MG PO; +PREDNISONE20 MG PO; +Vibramycin 100 MG/D5 IV
[2020-01-24 16:35] VITALS: BP 114/64; BMI 14.8
[2020-01-24] MEDS ORDERED: DURAGESIC1 EAC5 TOPICAL (17:21)
[2020-01-24] MEDS ORDERED: ELIQUIS2.5 MG PO (17:26)
[2020-01-24] MEDS ORDERED: FLORAJEN3 CAPS460 MG PO (17:28)
--- NOTE | 2020-01-24 19:00 | NUR ---
REPORT GIVEN BY CHARANJIT BONNER
--- NOTE | 2020-01-24 20:00 | NUR ---
THIS PT WAS ADMITTED TO THIS UNIT TODAY. SHE HAD A LEFT HIP SURGERY A WEEK AG0. SHE HAS JESSICA WITH A DRESSING COVERING THEM. THE SITE LOOKS GOOD WITH SMALL AMT OF OLD DRAINAGE NOTED. THE TAPE WAS LOOSE AND THIS WAS REINFORCED WITH PAPER TAPE. PT HAS EDEMA IN THE LLE. SHE HAS A PORT ACCESSED THAT SHE USED DURING CHEMO. SHE IS WEARING 02 DUE TO LOW SATS. HER BOTTOM IS RED. ASKED PT TO PLEASE TRY TO TURN A LITTLE TO PREVENT A BEDSORE FROM FORMING.
[2020-01-24 21:16] VITALS: BP 109/66
--- NOTE | 2020-01-25 03:00 | NUR ---
PT UP TO BR. I INSISTED THAT SHE TURN AND I PUT A BLANKET BEHIND HER BACK TO GET HER OFF HER REDDENED BOTTOM.
[2020-01-25 06:54] LABS: CALC OSMOLALITY 267 mosm/kg (275-300); CHLORIDE - SERUM 100 mmol/L (98-107); CREATININE - SERUM 0.7 mg/dL (0.6-1.3); GLUCOSE 84 mg/dL (74-106); POTASSIUM - SERUM 3.7 mmol/L (3.5-5.1); SODIUM 134 mmol/L (136-145); UREA NITROGEN 14 mg/dL (7-18); eGFR NON AFRICAN AMERICAN 88 mL/min (90-120)
[2020-01-25 07:27] LABS: BASOPHILS 0.1 % (0-2); EOSINOPHILS 0.2 % (0-7); HEMATOCRIT 29.1 % (36.0-48.0); HEMOGLOBIN 9.4 g/dL (12-16); IMMATURE GRANULOCYTES 0.8 % (0-5); LYMPHOCYTES 7.3 % (15-50); MCH 28.3 pg (26.0-34.0); MCHC 32.3 g/dL (31.0-37.0); MCV 87.7 fL (80.0-100.0); MONOCYTES 7.8 % (2-11); NEUTROPHILS 83.8 % (40-80); PLATELET COUNT 302 10x3/uL (130-400); RBC 3.32 10x6/uL (4.00-5.40); WBC 12.9 10x3/uL (4.8-10.8)
[2020-01-25 08:00] VITALS: BP 115/73
--- NOTE | 2020-01-25 08:00 | NUR ---
SHIFT ASSMT COMPLETED.CL IN REACH.INCISION LT HIP WITH DRSG INTACT.BREAKFAST GIVEN.
--- NOTE | 2020-01-25 08:03 | NUR ---
PT C/O NAUSEA. SHE WAS GIVEN ZOFRAN 4 MG PO OTHERWISE NO C/P
[2020-01-25 13:48] VITALS: Ht 167.6 cm; Wt 41.7 kg
[2020-01-25 19:30] VITALS: BP 98/65
[2020-01-26 07:04] LABS: BASOPHILS 0.1 % (0-2); EOSINOPHILS 0.4 % (0-7); HEMATOCRIT 26.8 % (36.0-48.0); HEMOGLOBIN 8.5 g/dL (12-16); IMMATURE GRANULOCYTES 0.6 % (0-5); LYMPHOCYTES 9.1 % (15-50); MCH 28.1 pg (26.0-34.0); MCHC 31.7 g/dL (31.0-37.0); MCV 88.4 fL (80.0-100.0); MEAN PLATELET VOLUME 9.1 fL (7.4-10.4); MONOCYTES 7.6 % (2-11); NEUTROPHILS 82.2 % (40-80); PLATELET COUNT 256 10x3/uL (130-400); RBC 3.03 10x6/uL (4.00-5.40); RDW 15.1 % (11.5-14.5); WBC 11.4 10x3/uL (4.8-10.8)
--- NOTE | 2020-01-26 07:15 | NUR ---
INTRODUCED SELF TO PATIENT, AWAKE AND ALERT RESTING IN BED, V/S AND ASSESSMENT COMPLETE, DENIES ANY NEEDS AT THIS TIME, C/L AND FLUIDS IN REACH.
[2020-01-26 07:18] LABS: CALC OSMOLALITY 267 mosm/kg (275-300); CALCIUM 11.6 mg/dL (8.5-10.1); CARBON DIOXIDE 30.3 mmol/L (21.0-32.0); CHLORIDE - SERUM 100 mmol/L (98-107); CREATININE - SERUM 0.6 mg/dL (0.6-1.3); GLUCOSE 85 mg/dL (74-106); SODIUM 134 mmol/L (136-145); UREA NITROGEN 16 mg/dL (7-18); eGFR NON AFRICAN AMERICAN > 90 mL/min (90-120)
[2020-01-26 07:21] LABS: POTASSIUM - SERUM 4.4 mmol/L (3.5-5.1)
[2020-01-26 07:28] VITALS: BP 103/60
--- NOTE | 2020-01-26 12:23 | NUR ---
SITTING UP IN BED EATING LUNCH, DENIES ANY NEEDS AT THIS TIME, C/L AND FLUIDS IN REACH.
--- NOTE | 2020-01-26 15:18 | NUR ---
PATIENT ADMITTED TO REHAB FROM ACUTE FLOOR. DR. MALDONADO IS PATIENT PCP. DME AT HOME IS A WALKER AND A SHOWER CHAIR . DISCHARGE PLANS ARE FOR PATIENT TO RETURN HOME WITH HER SPOUSE. SHE WOULD LIKE [facility]. WILL CONTINUE TO FOLLOW WITH PATIENT.
--- NOTE | 2020-01-26 15:58 | NUR ---
UP IN BED WATCHING TV, DENIES ANY NEEDS AT THIS TIME, C/L AND FLUIDS IN REACH.
--- NOTE | 2020-01-26 19:20 | NUR ---
PT IS RESTING IN BED WITH EYES CLOSED AWAKES EASILY. SHE IS A&OX4. VOICES PAIN IS "0/10" NUMERIC SCALE SINCE GIVEN PAIN PILL NOT TO LONG AGO. SHE HAS A VISITOR AT BEDSIDE. NO NEEDS OR COMPLINTS VOICED. PERFORMED FULL ASSESSMENT AND WILL DOC IN FLOW SHEET. VSS. BED IS LOW,SIDE RAISLX2,CALL LIGHT WITHIN REACH. WILL CONITUE TO MONITOR
--- NOTE | 2020-01-26 21:09 | NUR ---
PT IS RESTING IN BED WITH EYES CLOSED. RR NOTED, SKIN IS WARM AND PINK. BED IS LEFT LOW,SIDE RAISLX2,CALL LIGHT WITHIN REACH. WILL CONITNUE TO MONITOR
[2020-01-26 22:05] VITALS: BP 103/53
--- NOTE | 2020-01-26 23:04 | NUR ---
PT IS RESTING IN BED WITH EYES CLOSED. RR EUQAL AND UNLABORED. PT IS IS WARM AND PINK. BED IS LEFT LOW,SIDE RAISLX2,CALL LIGHT WITHIN REACH. WILL CONTINUE TO MONITOR
--- NOTE | 2020-01-27 01:02 | NUR ---
PT USED CALL LIGHT TO HAVE ASSITANCE TO BR. SHE VOIDED MODERATE AMOUNT OF YELLOW URINE. BACK TO BED SAFELY VIA WHEELCHAIR. SHE VOICED NO NEEDS OR CONCERNS AT THIS TIME. BED WAS LEFT LOW,SIDE RAISLX2,CALL LIGHT WITHIN REACH. ROBBY ALARM ON. WILL CONTINUE TO MONITOR
--- NOTE | 2020-01-27 03:00 | NUR ---
PT IS RESTING IN BED WITH EYES CLOSED. RR EQUAL AND UNLABORED. SKIN IS PINK AND WARM. BED IS LOW,SIDE RAILSX2,CALL LIGHT WTIHIN REACH. WILL CONINTUE TO MONITOR
--- NOTE | 2020-01-27 04:55 | NUR ---
PT USED CALL LIGHT FOR ASSISTANCE TO GO TO THE BR. SHE WAS STAND BY ASSIST THER AND BACK SAFETLY VIA WHEELCHAIR. SHE VOICES"MY HIP IS STILL HURTING, I HOPE I CAN GET SOME REST AND THAT PAIN PILL WILL KICK IN". BED IS LEFT LOW,SIDE RAISLX2,CALL LIGHT WITHIN REACH. WILL CONINTUE TO MONITOR
[2020-01-27 06:21] LABS: BASOPHILS 0.1 % (0-2); EOSINOPHILS 0.3 % (0-7); HEMATOCRIT 27.2 % (36.0-48.0); HEMOGLOBIN 8.8 g/dL (12-16); IMMATURE GRANULOCYTES 0.9 % (0-5); LYMPHOCYTES 8.5 % (15-50); MCH 28.7 pg (26.0-34.0); MCHC 32.4 g/dL (31.0-37.0); MCV 88.6 fL (80.0-100.0); MEAN PLATELET VOLUME 8.9 fL (7.4-10.4); MONOCYTES 7.3 % (2-11); NEUTROPHILS 82.9 % (40-80); PLATELET COUNT 242 10x3/uL (130-400); RBC 3.07 10x6/uL (4.00-5.40); WBC 11.9 10x3/uL (4.8-10.8)
--- NOTE | 2020-01-27 06:25 | NUR ---
PT IS RESTING IN BED WATCHING TV. VOICES NO NEEDS OR COMPLAINTS AT THIS TIME. SAYS "I AM GOING TO TRY TO SLEEP SOME MORE". PROVIDED FRESH WATER. BED IS LOW,SIDE RAISLX2,CALL LIGHT WITHIN REACH. WILL CONITNUE TO MONITOR
--- NOTE | 2020-01-27 07:15 | NUR ---
UP IN W/C ASSISTED TO B/R, V/S AND ASSESSMENT COMPLETE, DENIES ANY NEEDS AT THIS TIME, D/L AND FLUIDS IN REACH.
[2020-01-27 10:10] LABS: BASOPHILS 0.1 % (0-2); EOSINOPHILS 0.3 % (0-7); HEMATOCRIT 27.3 % (36.0-48.0); HEMOGLOBIN 8.9 g/dL (12-16); IMMATURE GRANULOCYTES 0.6 % (0-5); LYMPHOCYTES 6.8 % (15-50); MCHC 32.6 g/dL (31.0-37.0); MCV 88.9 fL (80.0-100.0); MEAN PLATELET VOLUME 8.6 fL (7.4-10.4); MONOCYTES 6.5 % (2-11); NEUTROPHILS 85.7 % (40-80); PLATELET COUNT 204 10x3/uL (130-400); RBC 3.07 10x6/uL (4.00-5.40); RDW 15.2 % (11.5-14.5); WBC 13.5 10x3/uL (4.8-10.8)
[2020-01-27 10:53] LABS: CALC OSMOLALITY 261 mosm/kg (275-300); CALCIUM 11.7 mg/dL (8.5-10.1); CARBON DIOXIDE 31.9 mmol/L (21.0-32.0); CHLORIDE - SERUM 96 mmol/L (98-107); CREATININE - SERUM 0.7 mg/dL (0.6-1.3); GLUCOSE 97 mg/dL (74-106); SODIUM 130 mmol/L (136-145); UREA NITROGEN 16 mg/dL (7-18); eGFR NON AFRICAN AMERICAN 88 mL/min (90-120)
[2020-01-27 10:55] LABS: POTASSIUM - SERUM 3.6 mmol/L (3.5-5.1)
--- NOTE | 2020-01-27 11:54 | NUR ---
UP IN W/C VISITING WITH SISTER, DENIES ANY NEEDS AT THIS TIME, C/L AND FLUIDS IN REACH.
[2020-01-27 12:07] VITALS: BP 121/69
--- NOTE | 2020-01-27 16:03 | NUR ---
RESTING IN BED WITH EYES CLOSED, RESP EVEN AND UNLABORED, NO S/S OF DISTRESS NOTED, C/L AND FLUIDS IN REACH.
--- NOTE | 2020-01-27 18:55 | NUR ---
BEDSIDE REPORT COMPLETE. PT SITTING UP IN BED. ALERT AND ORIENTED X4. DENIES ANY NEEDS OR PAIN. NO SIGNS OF ACUTE DISTRESS NOTED. CALL LIGHT WITHIN REACH. BED ALARM ON. CPOC
[2020-01-27 20:35] VITALS: BP 110/69
--- NOTE | 2020-01-27 23:43 | NUR ---
PT LYING IN BED EYES CLOSED RESTING QUIETLY. RR EVEN AND UNLABORED. CALL LIGHT WITHIN REACH. FALL PRECAUTIONS IN PLACE. WILL CONTINUE TO MONITOR
--- NOTE | 2020-01-28 01:15 | NUR ---
ASSISTED PT TO RESTROOM AND BACK TO BED WITH SBA. DENIES ANY OTHER NEEDS. C/O BILATERAL HIP PAIN. INFORMED PT IT WAS TOO SOON FOR PAIN MEDICATION. PT VERBALIZED UNDERSTANDING. CALL LIGHT WITHIN REACH. FALL PRECAUTIONS IN PLACE. CPOC
--- NOTE | 2020-01-28 04:15 | NUR ---
ASSISTED PT TO RESTROOM AND BACK TO BED WITH SBA. DENIES ANY OTHER NEEDS. CALL LIGHT WITHIN REACH. FALL PRECAUTIONS IN PLACE. CPOC
--- NOTE | 2020-01-28 06:53 | NUR ---
PT LYING IN BED EYES CLOSED RESTING. RR EVEN AND UNLABORED. CALL LIGHT WITHIN REACH. BED ALARM ON. CPOC
[2020-01-28 10:09] VITALS: BP 86/55
--- NOTE | 2020-01-28 13:07 | NUR ---
PT ASSISTED TO BATHROOM TO VOID.
--- NOTE | 2020-01-28 17:08 | NUR ---
PT RESTING QUIETLY.
--- NOTE | 2020-01-28 19:00 | NUR ---
BEDSIDE REPORT COMPLETE. PT LYING IN BED RECEIVING UPDRAFT TREATMENT. PT C/O NOT FEELING WELL TODAY WITH INCREASED PAIN. VS STABLE. PAIN MEDICATION WAS ADMININSTERED BY DAY SHIFT RN. NO OTHER CONCERNS VOICED. LEFT HIP DRESSING INTACT WITH MODERATE AMOUNT OF DRAINAGE NOTED. CALL LIGHT WITHIN REACH. FALL PRECAUTIONS IN PLACE. CPOC
[2020-01-28 20:30] VITALS: BP 105/58
--- NOTE | 2020-01-28 23:58 | NUR ---
PT LYING IN BED EYES CLOSED RESTING QUIETLY. HOB ELEVATED. CALL LIGHT WITHIN REACH. BED ALARM ON. CPOC
--- NOTE | 2020-01-29 02:10 | NUR ---
ASSISTED PT TO RESTROOM AND BACK TO BED WITH MIN ASSIST. DENIES ANY OTHER NEEDS. CALL LIGHT WITHIN REACH. FALL PRECAUTIONS IN PLACE. CPOC
--- NOTE | 2020-01-29 05:05 | NUR ---
ASSISTED PT TO RESTROOM AND BACK TO BED WITH MIN ASSIST. DENIES ANY OTHER NEEDS. PAIN 6/10 BACK AND SHOULDERS THROBBING. WILL ADMINISTER NORCO 5MG PER PT REQUEST. CALL LIGHT WITHIN REACH. FALL PRECAUTIONS IN PLACE. CPOC
--- NOTE | 2020-01-29 07:15 | NUR ---
A/A/OX4. ASSISTED UP TO BATHROOM AND BACK TO BED WITH MINIMAL ASST. TOLERATED WELL. DENIES ANY PAIN AT PRESENT TIME AND VOICES NO REQUESTS. SIDERAILS UP X 2, CALL LIGHT AND FLUIDS IN REACH, BED IN LOW LOCKED POSITION. INCISION LEFT HIP C/D/I WITH JESSICA PATENT. SMALL BRUISE NOTED AT BOTTOM OF INCISION. ALARMS ON BED AND WORKING PROPERLY.
[2020-01-29 07:54] LABS: HEMATOCRIT 29.2 % (36.0-48.0); HEMOGLOBIN 9.4 g/dL (12-16); LYMPHOCYTES 6.1 % (15-50); MCH 28.7 pg (26.0-34.0); MCHC 32.2 g/dL (31.0-37.0); MCV 89.3 fL (80.0-100.0); MEAN PLATELET VOLUME 8.7 fL (7.4-10.4); NEUTROPHILS 86.3 % (40-80); PLATELET COUNT 209 10x3/uL (130-400); RBC 3.27 10x6/uL (4.00-5.40); RDW 15.3 % (11.5-14.5); WBC 14.1 10x3/uL (4.8-10.8)
[2020-01-29 07:57] LABS: CALC OSMOLALITY 259 mosm/kg (275-300); CARBON DIOXIDE 27.7 mmol/L (21.0-32.0); CHLORIDE - SERUM 95 mmol/L (98-107); GLUCOSE 90 mg/dL (74-106); SODIUM 129 mmol/L (136-145); UREA NITROGEN 15 mg/dL (7-18)
[2020-01-29 07:58] LABS: CREATININE - SERUM 0.5 mg/dL (0.6-1.3); POTASSIUM - SERUM 4.4 mmol/L (3.5-5.1); eGFR NON AFRICAN AMERICAN > 90 mL/min (90-120)
[2020-01-29 07:59] LABS: CALCIUM 12.5 mg/dL (8.5-10.1)
[2020-01-29 08:00] VITALS: BP 94/63
--- NOTE | 2020-01-29 13:42 | NUR ---
Nutrition Follow-up: Diet: Regular + Boost TID PO intake: ~39% average x last 9 meals Last BM: 01/20/20 (per nursing flowsheet). Wt: 92# (01/25/20) Meds noted: linzess. Labs noted: Na 129(L) Consider increase in bowel regimen to promote BM regularity and hopefully help increase appetite. Recommend continue current diet and oral nutrition supplement. RD following.
--- NOTE | 2020-01-29 19:50 | NUR ---
PATIENT RECEIVED SITTING UP IN BED. ASSESSMENT & VITAL SIGNS DONE. C/O NECK & LEFT SHOULDER PAIN. PAIN MEDICATION WILL BE GIVEN PER ORDER. BED LOW. ALARM ON. CALL LIGHT WITHIN REACH. WILL CONTINUE TO MONITOR.
[2020-01-29 21:53] VITALS: BP 102/58
--- NOTE | 2020-01-30 00:20 | NUR ---
PATIENT USED CALL LIGHT FOR ASSIST. PATIENT MINIMAL ASSIST INTO & OUT OF WHEELCHAIR. PATIENT HAD VOID ONLY. PATIENT RETURNED TO LOW BED. CALL LIGHT WITHIN REACH. WILL CONTINUE TO MONITOR.
--- NOTE | 2020-01-30 02:17 | NUR ---
PATIENT USED CALL LIGHT FOR ASSIST TO BATHROOM. VOID ONLY. MINIMAL ASSIST INTO & OUT OF WHEELCHAIR. BED LOW. CALL LIGHT WITHIN REACH. WILL CONTINUE TO MONITOR.
--- NOTE | 2020-01-30 02:35 | NUR ---
I have reviewed this patient and I concur with the Shift Assessment completed by the Licensed Practical Nurse today this shift.
--- NOTE | 2020-01-30 03:41 | NUR ---
PATIENT USED CALL LIGHT FOR ASSIST. PATIENT MINIMAL ASSIST INTO & OUT OF WHEELCHAIR. VOID ONLY. PATIENT IN BED. CALL LIGHT WITHIN REACH. WILL CONTINUE TO MONITOR.
[2020-01-30 08:00] VITALS: BP 91/57
--- NOTE | 2020-01-30 08:00 | NUR ---
SITTING UP IN BED AWAKE AND ALERT, DENIES ANY NEEDS AT THIS TIME, C/L AND FLUIDS IN REACH.
--- NOTE | 2020-01-30 08:35 | RHP ---
PATIENT: ELISSA PEMBERTON MEDICAL RECORD: [id number] ACCOUNT: [id number] LOCATION:[id number] : [birth year] ADMISSION DATE: 01/24/20 REHABILITATION HISTORY AND PHYSICAL EXAMINATION POST ADMISSION PHYSICIAN EXAMINATION ADMITTING DIAGNOSIS: Metabolic encephalopathy. HISTORY OF PRESENT ILLNESS: The patient is a 69-year-old female patient, who presented to the ED with her spouse reported that the patient had been not eating or drinking for the previous several days, had weakness to her upper and lower extremities. She had confusion, global weakness, decreased appetite and decreased oral intake. The patient had chemo on Wednesday on 01/14, at that time displayed similar symptoms, removed her fentanyl patch and she had an MRI of her brain, which was performed on 01/10 which showed no intracranial changes. He states her confusion continued to get worse. She was admitted to the hospital for workup. The patient has a history of COPD, stage IV non-small lung cancer. The patient had been on chemo treatment with Keytruda and other agents during her stay. She had no evidence of pulmonary embolism. She had degeneration of her spine noted upon CT of her chest. The patient did have an abnormal radiotracer uptake noted in the proximal left femur, which was concerning for metastatic disease. The patient has been receiving PT during her acute hospital stay. She fatigues easily. She does have decreased ability for activity and dyspnea on exertion. She had been monitored closely on telemetry because she has got sinus tachycardia and she has had that here. We are monitoring her oxygen saturation. She is on pain control and monitoring her H&H. She did receive blood. The patient is also on anticoagulation. She is on electrolyte protocol. The patient is also having problems with her blood sugar, being hyper and hypoglycemic at times. Monitoring her surgical wounds, decreased activity tolerance, proximal weakness, impaired mobility. She has got decreased quality of life, decreased strength. She has got limited safety awareness. 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 She has got low endurance, unsteady gait and balance, fatigues easily, inability to care for herself and self-care deficits. These are all barriers to her discharge home. She lives at home with her spouse and was independent with her ADLs and mobility prior to this. She is currently set up for max assist for ADLs and mod assist for mobility with use of rolling walker. She plans to return home hopefully at her prior level of functioning if possible. COMORBIDITIES: In this patient include weakness, oral stage dysphagia, carcinoma of the lung, dehydration, nicotine dependence, metabolic encephalopathy, dehydration, pneumonia, sepsis. She has got stage IV lung cancer, likely metastatic. The patient has had some problems with her electrolytes with hyper and hypoglycemia. She has got [id number] respiratory failure, COPD, chronic back pain, anxiety, and frequent falls. PAST MEDICAL HISTORY: Significant for COPD, lung cancer, acid reflux, chronic back pain, anxiety. PAST SURGICAL HISTORY: Includes a and appendectomy. She has had tonsillectomy and adenoidectomy, a tubal, knee scope, right ORIF of her tibia and left lung surgery. ALLERGIES: PENICILLIN, LORAZEPAM, ATIVAN, CELEXA, AND ZOLOFT. HISTORY AND PHYSICAL [id number] NILAYELISSA WAGNER CURRENT MEDICATIONS: Include Floranex 1 cap daily, prednisone 20 mg daily, Zofran 4 mg daily, Protonix 80 mg daily, Linzess 145 mcg daily, Eliquis 2.5 mg b.i.d., Vibramycin 100 mg b.i.d., Paxil 10 mg at bedtime, Mucinex 600 mg b.i.d., Maxipime 2 g every 12 hours, Tums 500 mg every 4 hours, she is on Brovana 15 mcg b.i.d., budesonide 0.5 mg b.i.d., Ventolin updrafts as needed, Hudson 5/325 one tab every 4 hours p.r.n., Phenergan 12.5 mg every 4 hours p.r.n. and a Duragesic patch she was on 75, but has been decreased to 50 here. HABITS: Distant history of tobacco use. FAMILY HISTORY: Noncontributory. SOCIAL HISTORY: The patient hopes to return back home and get back to her prior level of functioning. REVIEW OF SYSTEMS: GENERAL: Does complain of weakness and fatigue. HEENT: Denies cold, cough, or congestion. CARDIOVASCULAR: Denies any chest pain. PHYSICAL EXAMINATION: VITAL SIGNS: Stable, afebrile. GENERAL: A very cachectic elderly female in no acute distress. HEENT: Normocephalic and atraumatic. Mucosa moist. NECK: Supple. No lymphadenopathy. LUNGS: Clear in upper bradley, although she does have decreased breath sounds in the bases. HEART: Regular rate and rhythm. No murmurs, rubs or gallops. ABDOMEN: Soft, benign and nondistended. Positive bowel sounds times 4. EXTREMITIES: No clubbing, cyanosis or edema. NEUROLOGIC: She does have proximal muscle strength and weakness. LABORATORY DATA: White count is 12.9, H&H of 9 and 29, and platelet count was noted to be 302. Sodium 134, potassium 3.2, BUN and creatinine of 14 and 0.7 and blood sugar is noted to be 84. ASSESSMENT: This is a 69-year-old female patient admitted to rehab with a working diagnosis of metabolic encephalopathy. The patient has potential to make improvement. We instituted the following multidisciplinary therapies including, but not limited to physical, occupational, respiratory, speech, nutritional services, prosthetics and orthotics. Given her complex medical condition and risks for more complications, rehabilitation services cannot be provided at a low level of care such as nursing home facility. PLAN: 1. Admit to [facility] for intensive inpatient therapy to include the following disciplines; A. Physical therapy to improve his gait, all transfer skills and bed mobility to a modified independent level. B. Occupational therapy to improve activities of daily living. C. Case management to assist with discharge planning and placement options. D. Nutrition to assist with nutritional needs. E. Rehabilitation nursing to assist in monitoring the patient's underlying medical conditions and to assist with any type of bowel or bladder management. HISTORY AND PHYSICAL [id number] ELISSA PEMBERTON 2. The patient's current medication and medical care will be continued. 3. The patient will be placed on standard fall precautions. 4. The patient's estimated length of stay is approximately 7-10 days. 5. We will discuss this patient during care team staff meeting this week. We will continue on meds as appropriate, watch her pain control on a Duragesic patch and I am going to see again in the a.m. TRANSINT:[id number] Voice Confirmation ID: [id number] DOCUMENT ID: [id number] AMALIA notes whether there has been none or any medical/functional change since admission: - No change since prescreen. AMALIA attests patient continues to be appropriate for IRF: - Continues to be appropriate. DIOGO ORTIZ MD at 0835 CC: [id number] DICTATION DATE: 01/25/2006 CHILD DEVELOPMENT SPECIALIST: 01/25/20 1020 ADM IN [place] [id number] [place] [address]
--- NOTE | 2020-01-30 09:00 | NUR ---
AWAKE AND ALERT, ASSESSMENT COMPLETE, C/L AND FLUIDS IN REACH.
--- NOTE | 2020-01-30 12:00 | NUR ---
RESTING IN BED WATCHING TV, DENIES ANY NEEDS AT THIS TIME, C/L AND FLUIDS IN REACH.
--- NOTE | 2020-01-30 13:00 | NUR ---
I have reviewed this patient and I concur with the Shift Assessment completed by the Licensed Practical Nurse today this shift.
--- NOTE | 2020-01-30 16:01 | NUR ---
RESTING IN BED WITH EYES CLOSED, NO S/S OF DISTRESS NOTED, RESP EVEN AND UNLABORED, C/L AND FLUIDS IN REACH.
--- NOTE | 2020-01-30 19:34 | NUR ---
PATIENT RECEIVED SITTING UP IN ROOM. ASSESSMENT & VITAL SIGNS DONE. NO C/O PAIN OR DISTRESS. BED LOW. CALL LIGHT WITHIN REACH. WILL CONTINUE TO MONITOR.
[2020-01-30 21:16] VITALS: BP 107/64
--- NOTE | 2020-01-31 02:20 | NUR ---
I have reviewed this patient and I concur with the Shift Assessment completed by the Licensed Practical Nurse today this shift.
--- NOTE | 2020-01-31 04:36 | NUR ---
PATIENT USED CALL LIGHT FOR ASSIST TO BATHROOM. MINIMAL ASSIST INTO & OUT OF WHEELCHAIR. VOID ONLY. RETURNED PATIENT TO LOW BED. CALL LIGHT WITHIN REACH. WILL CONTINUE TO MONITOR.
--- NOTE | 2020-01-31 07:45 | NUR ---
RESTING IN BED, DENIES ANY NEEDS AT THIS TIME, ASSESSMENT COMPLETE, C/L AND FLUIDS IN REACH.
[2020-01-31 08:00] VITALS: BP 101/64
[2020-01-31 08:51] LABS: CALC OSMOLALITY 260 mosm/kg (275-300); CALCIUM 11.4 mg/dL (8.5-10.1); CARBON DIOXIDE 32.1 mmol/L (21.0-32.0); CHLORIDE - SERUM 98 mmol/L (98-107); CREATININE - SERUM 0.5 mg/dL (0.6-1.3); GLUCOSE 92 mg/dL (74-106); POTASSIUM - SERUM 3.8 mmol/L (3.5-5.1); SODIUM 130 mmol/L (136-145); UREA NITROGEN 13 mg/dL (7-18); eGFR NON AFRICAN AMERICAN > 90 mL/min (90-120)
[2020-01-31 09:24] LABS: BASOPHILS 0.1 % (0-2); EOSINOPHILS 0.7 % (0-7); HEMOGLOBIN 8.5 g/dL (12-16); IMMATURE GRANULOCYTES 0.6 % (0-5); LYMPHOCYTES 8.9 % (15-50); MCH 28.4 pg (26.0-34.0); MCHC 31.5 g/dL (31.0-37.0); MCV 90.3 fL (80.0-100.0); MONOCYTES 7.5 % (2-11); NEUTROPHILS 82.2 % (40-80); PLATELET COUNT 174 10x3/uL (130-400); RBC 2.99 10x6/uL (4.00-5.40); RDW 15.3 % (11.5-14.5); WBC 8.4 10x3/uL (4.8-10.8)
--- NOTE | 2020-01-31 12:08 | NUR ---
RESTING IN BED WITH AT BEDSIDE, DENIES ANY NEEDS AT THIS TIME, C/L AND FLUIDS IN REACH.
--- NOTE | 2020-01-31 16:08 | NUR ---
RESTING IN BED WATCHING TV, DENIES ANY NEEDS AT THIS TIME, C/L AND FLUIDS IN REACH.
--- NOTE | 2020-01-31 16:27 | NUR ---
CARE TEAM MEETING: PATIENT AND SPOUSE ATTENDED THE MEETING. SHE IS REQQUESTING TO DISCHARGE HOME. HER TENATIVE DC DATE IS 02/01/20. WILL CONTINUE TO FOLLOW WITH PATIENT.
--- NOTE | 2020-01-31 19:45 | NUR ---
ASSESSMENT PER FLOW SHEET, VS OBTAINED PER EMERGENCY TELECOMMUNICATIONS DISPATCHER, PT REPORTS SHE CANNOT REMEMBER HER LAST BM, DENIES FLATUS, PT UP TO BR WITH ASSISTANCE VIA WC, VOIDED WITH NO DIFFICULTY, PT BACK TO BED, DENIES NEEDS OR PAIN AT THIS TIME, BED IN LOW POSITION, SIDE RAILS X 2, CALL LIGHT IN REACH
--- NOTE | 2020-01-31 20:37 | NUR ---
PT AWAKE, ADM 2100 MEDS PER MD ORDERS, SEE EMAR, DENIES NEEDS OR PAIN AT THIS TIME
[2020-01-31 20:59] VITALS: BP 102/58
--- NOTE | 2020-01-31 21:13 | NUR ---
PT RESTING WITH EYES CLOSED, RESP QUIET, NO DISTRESS NOTED, LEFT UNDISTURBED AT THIS TIME, BED IN LOW POSIITON, SIDE RAILS X 2, CALL LIGHT IN REACH, BED ALARM ON AND WORKING PROPERLY
--- NOTE | 2020-01-31 23:00 | NUR ---
PT GATE ATTENDANT LIGHT, PT UP TO BR WITH ASSISTANCE VIA WC, VOIDED WITH NO DIFFICULTY, PT BACK TO BED, DENIES FURTHER NEEDS OR PAIN AT THIS TIME, BED IN LOW POSITION, SIDE RAILS X 2, CALL LIGHT IN REACH
--- NOTE | 2020-02-01 00:20 | NUR ---
PT CANNERY WORKER LIGHT, PT UP TO BR WITH ASSISTANCE VIA WC, VOIDED WITH NO DIFFICULTY, PT BACK TO BED, DENIES FURTHER NEEDS, BED IN LOW POSITION, SIDE RAILS X 2, CALL LIGHT IN REACH
--- NOTE | 2020-02-01 01:30 | NUR ---
PT COMPUTER REPAIR INSTRUCTOR LIGHT, PT UP TO BR WITH ASSISTANCE VIA WC, VOIDED WITH NO DIFFICULTY, PT BACK TO BED, DENIES FURTHER NEEDS, BED IN LOW POSITION, SIDE RAILS X 2, CALL LIGHT IN REACH
--- NOTE | 2020-02-01 02:36 | NUR ---
PT AWAKE, WATCHING TV, DENIES NEEDS OR PAIN AT THIS TIME, BED IN LOW POSITION, SIDE RAILS X 2, CALL LIGHT IN REACH
--- NOTE | 2020-02-01 04:38 | NUR ---
PT RESTING WITH EYES CLOSED, RESP QUIET, NO DISTRESS NOTED, LEFT UNDISTURBED AT THIS TIME, BED IN LOW POSITON, SIDE RAILS X 2, CALL LIGHT IN REACH, BED ALARM ON AND WORKING PROPERLY
--- NOTE | 2020-02-01 05:43 | NUR ---
PT RESTING WITH EYES CLOSED, AROUSES TO SOFT VERBAL STIMULATION, ADM 0600 MEDS PER MD ORDERS, PT UP TO BR WITH ASSISTANCE VIA WC, PT VOIDED WITH NO DIFFICULTY, PT BACK TO BED, REQUESTS PAIN MED, BUT INFORMED PT IT WAS NOT DUE TILL 7:05, PT VERBALIZES UNDERSTANDING, DENIES FURTHER NEEDS, FALL PRECAUTIONS IN PLACE
[2020-02-01] MEDS ORDERED: HYDROCODON-ACE1 EAC7 PO (07:23)
--- NOTE | 2020-02-01 07:30 | NUR ---
AWAKE,RESTING QUIETLY IN BED.ASSESSMENT COMPLETED.INCISIONS TO LEFT HIP/THIGH WITH JESSICA INTACT ,NO SIGNS OF INFECTION,HEALING WELL.VOICES EXCITMENT ABOUT GOING HOME TODAY.WILL CONTINUE WITH CURRENT PLAN OF CARE AND DISCHARGE TEACHING.CL IN EASY REACH,BED IN LOW POSITION.
[2020-02-01 08:00] VITALS: BP 95/59
--- NOTE | 2020-02-01 10:23 | NUR ---
PATIENT DISCHARGING HOME TODAY WITH FAMILY. [facility] WILL PROVIDE THERAPY AT HOME. NO NEW DME NEEDED AT THIS TIME. DR. MALDONADO 02/14/20 @ 12:00, DR. SAUCEDA 02/13/20 @ 1:00. ALISSON SIGNED, IMM SERVED AND EXPLAINED, ONE GIVEN TO PATIENT AND ONE FILED IN CHART. DISCHARGE INSTRUCTIONS FAXED TO PCP, HOME HEALTH AND REVIEWED WITH PATIENT PER PRIMARY NURSE.NO COMPARE DATA REVIEWED PER PATIENT REQUEST.
--- NOTE | 2020-02-01 11:30 | NUR ---
DISCHARGE TEACHING WRITTEN AND ORAL DONE WITH PATIENT AND SPOUSE.ALL QUESTIONS ANSWERED.PRESCRIPTION FOR NORCO 5/325 GIVEN TO SPOUSE,HE STATES" SHE HAS A BOTTLE AT HOME,SHE GETS 120 PILLS AT A TIME"
--- NOTE | 2020-02-01 13:35 | NUR ---
DISCHARGED HOME VIA WHEELCHAIR TO CAR.HAS ALL PERSONAL ITEMS ,INSTRUCTIONS,PRESCRIPTION.
== END 2020-02-01 11:35 | disposition home health service (06) | DRG 70 ==
LOC: D.REHAB 16:26
PROVIDERS: ADMIT Emergency Medicine; ATTEND Emergency Medicine
DX: G93.41 Metabolic encephalopathy (principal); J18.9 Pneumonia, unspecified organism; A41.9 Sepsis, unspecified organism; J96.21 Acute and chronic respiratory failure with hypoxia; C34.90 Malignant neoplasm of unspecified part of unspecified bronchus or lung; F17.203 Nicotine dependence unspecified, with withdrawal; E87.1 Hypo-osmolality and hyponatremia; R53.1 Weakness; R13.11 Dysphagia, oral phase; E86.0 Dehydration; J44.9 Chronic obstructive pulmonary disease, unspecified; F41.9 Anxiety disorder, unspecified; G89.29 Other chronic pain; K21.9 Gastro-esophageal reflux disease without esophagitis; D50.9 Iron deficiency anemia, unspecified; E83.52 Hypercalcemia

== ENCOUNTER 2020-02-08 07:00 | Inpatient (IN) | payer MEDICARE, OTHER ==
[~2020-02-08] VITALS: Ht 167.6 cm; Wt 39.9 kg
[~2020-02-08 07:00] MED LIST changes: +DURAGESIC1 EAC5 TOPICAL; +FLORAJEN3 CAPS460 MG PO
[2020-02-08 07:27] VITALS: BP 116/73
[2020-02-08 07:52] LABS: BASOPHILS 0.1 % (0-2); EOSINOPHILS 0 % (0-7); HEMATOCRIT 30.4 % (36.0-48.0); HEMOGLOBIN 9.6 g/dL (12-16); IMMATURE GRANULOCYTES 0.4 % (0-5); LYMPHOCYTES 3.5 % (15-50); MCH 29.2 pg (26.0-34.0); MCHC 31.6 g/dL (31.0-37.0); MCV 92.4 fL (80.0-100.0); MEAN PLATELET VOLUME 8.9 fL (7.4-10.4); MONOCYTES 6.4 % (2-11); NEUTROPHILS 89.6 % (40-80); PLATELET COUNT 308 10x3/uL (130-400); RBC 3.29 10x6/uL (4.00-5.40); RDW 15.3 % (11.5-14.5); WBC 16.8 10x3/uL (4.8-10.8)
[2020-02-08 08:05] LABS: ALBUMIN 2.2 g/dL (3.4-5.0); ALKALINE PHOSPHATASE 118 U/L (30-120); ALT (SGPT) 25 U/L (10-68); AMYLASE - SERUM 28 U/L (25-115); BILIRUBIN - TOTAL 0.44 mg/dL (0.2-1.3); CALC OSMOLALITY 272 mosm/kg (275-300); CARBON DIOXIDE 29.5 mmol/L (21.0-32.0); CHLORIDE - SERUM 99 mmol/L (98-107); CREATININE - SERUM 0.8 mg/dL (0.6-1.3); GLUCOSE 111 mg/dL (74-106); POTASSIUM - SERUM 4.4 mmol/L (3.5-5.1); PROTEIN - SERUM 6.9 g/dL (6.4-8.2); SODIUM 134 mmol/L (136-145); TROPONIN-I < 0.017 ng/mL (0.000-0.060); UREA NITROGEN 23 mg/dL (7-18); eGFR NON AFRICAN AMERICAN 75 mL/min (90-120)
[2020-02-08 08:05] LABS: AMORPHOUS SEDIMENT >1+ /lpf (NONE SEEN); BACTERIA FEW /hpf (NEGATIVE); BILIRUBIN NEGATIVE (NEGATIVE); EPITHELIAL CELLS OCC /hpf (0-5); GLUCOSE NEGATIVE (NEGATIVE); GRANULAR CAST RARE /lpf (NONE SEEN); KETONE NEGATIVE (NEGATIVE); NITRITE NEGATIVE (NEGATIVE); RED CELLS - URINE 0-5 /hpf (0-5); WHITE CELLS - URINE RARE /hpf (NEGATIVE)
[2020-02-08 08:06] LABS: LIPASE 26 U/L (73-393)
[2020-02-08 08:07] LABS: CALCIUM 15.1 mg/dL (8.5-10.1)
[2020-02-08 08:27] VITALS: BP 107/63
[2020-02-08 09:36] VITALS: BP 106/59
[2020-02-08 10:48] VITALS: BP 88/56; BMI 14.2
--- NOTE | 2020-02-08 10:59 | NUR ---
PATIENT ADMITTED TO ROOM 2239. ADMISSION COMPLETE. BED ALARM ON. WILL CONTINUE TO MONITOR. BED LOW. CALL LOVE AND PERSONAL ITEMS IN REACH.
--- NOTE | 2020-02-08 11:12 | NUR ---
PATIENT BP 88/56. ORAL PERES AWARE THAT BP LOW. NOT SETTING UP PAPER FEEDER AT THIS TIME. REQUESTED PRN PAIN MEDICATION FOR PATIENT INSTEAD. NO NEW ORDERS AT THIS TIME. PATIENT NOT C/O PAIN AT THIS TIME.
--- NOTE | 2020-02-08 11:42 | NUR ---
SITTING IN BED. DENIES NEEDS. WILL CONTINUE TO MONITOR.,
[2020-02-08 17:01] VITALS: BP 100/62
--- NOTE | 2020-02-08 18:20 | NUR ---
EDUCATION PROVIDED ON LOVENOX SHOT. PATIENT REFUSES.
[2020-02-08 20:00] VITALS: BP 104/60
--- NOTE | 2020-02-08 20:10 | NUR ---
AWAKE AND ALERT. ORIENTED X4. LYING IN BED. ASSISTED ONTO BEDPAN. GEN WEAKNESS NOTED. DRSG NOTED TO LT HIP IS C/D/I. BRUISES NOTED TO BUE, BLE. SCABS NOTED TO BLE. SKIN TEAR TO RT FOREARM, LT ELBOW, AND ANKLES. VERY WEAK. UNABLE TO AMB TODAY. NS @ 75 ML/HR INFUSING IN LT CHEST WALL INFUSAPORT. PT IS EMACIATED. DENIES DIARRHEA. DENIES NAUSEA. INSTRUCTED OF NPO STATUS. SR ELEVATED X3. CL IN REACH. BED ALARM IN USE FOR PT SAFETY.
--- NOTE | 2020-02-09 01:08 | NUR ---
LYING SUPINE IN BED WITH EYES CLOSED. RESP SHALLOW, NONLABORED. HAS RESTED WELL SO FAR THIS SHIFT. NO VOMITING NOTED. CL IN REACH. BED ALARM ON FOR PT SAFETY.
[2020-02-09 04:00] VITALS: BP 101/55
[2020-02-09 05:33] LABS: BASOPHILS 0 % (0-2); EOSINOPHILS 0.1 % (0-7); HEMATOCRIT 25.5 % (36.0-48.0); HEMOGLOBIN 7.8 g/dL (12-16); IMMATURE GRANULOCYTES 0.4 % (0-5); LYMPHOCYTES 3.6 % (15-50); MCH 28.9 pg (26.0-34.0); MCHC 30.6 g/dL (31.0-37.0); MEAN PLATELET VOLUME 8.6 fL (7.4-10.4); MONOCYTES 6.6 % (2-11); NEUTROPHILS 89.3 % (40-80); PLATELET COUNT 319 10x3/uL (130-400); RDW 15.5 % (11.5-14.5); WBC 14.4 10x3/uL (4.8-10.8)
[2020-02-09 05:39] LABS: MCV 94.4 fL (80.0-100.0)
[2020-02-09 05:47] LABS: ALBUMIN 1.8 g/dL (3.4-5.0); ALKALINE PHOSPHATASE 84 U/L (30-120); BILIRUBIN - TOTAL 0.38 mg/dL (0.2-1.3); CARBON DIOXIDE 24.9 mmol/L (21.0-32.0); CHLORIDE - SERUM 106 mmol/L (98-107); CREATININE - SERUM 0.7 mg/dL (0.6-1.3); MAGNESIUM - SERUM 1.7 mg/dL (1.8-2.4); PHOSPHOROUS 1.9 mg/dL (2.5-4.9); PROTEIN - SERUM 5.6 g/dL (6.4-8.2); SODIUM 139 mmol/L (136-145); UREA NITROGEN 20 mg/dL (7-18); eGFR NON AFRICAN AMERICAN 88 mL/min (90-120)
--- NOTE | 2020-02-09 06:24 | NUR ---
HAS RESTED WELL TONIGHT. NO N/V NOTED. RESP NONLABORED. DENIES PAIN. CL IN REACH.
[2020-02-09 06:25] LABS: ALT (SGPT) 17 U/L (10-68); CALC OSMOLALITY 278 mosm/kg (275-300); POTASSIUM - SERUM 3.7 mmol/L (3.5-5.1)
[2020-02-09 06:27] LABS: CALCIUM 12.7 mg/dL (8.5-10.1); GLUCOSE 56 mg/dL (74-106)
--- NOTE | 2020-02-09 06:35 | NUR ---
PAGED NEREYDA MCLAINN TO REPORT GLUCOSE OF 56. AWAITING CALL BACK. PT DENIES BEING DIABETIC BUT IS NPO RIGHT NOW.
--- NOTE | 2020-02-09 06:45 | NUR ---
PAGED ORAL MCLAIN AGAIN. NO CALL BACK YET.
[2020-02-09 09:13] VITALS: BP 107/58
[2020-02-09 11:47] VITALS: BP 94/53
--- NOTE | 2020-02-09 15:29 | NUR ---
PT LAYING DOWN IN BED. PT ORIENTATED TO SITUATION, PERSON AND PLACE. LEFT CHEST PORT, PATENT AND INFUSING NS, NON-TENDER, NO REDNESS OR SWELLING. SCDS IN PLACE, REMOVED FOR SKIN INSPECTION, SKIN DRY AND INTACT. PT HAS BRUISES BILAT LOWER LEGS, SKIN TEARS ON BILAT SHINS, PTS SPOUSE REPORTS THAT PT HAS FALLEN MULTIPLE TIMES IN PAST MONTH. PT HAS SKIN TEAR ON LEFT ELBOW, MULTIPLE BRUISES ON BILAT UPPER EXTREMITIES. EDUCATED PT AND SPOUSE ON FALL PRECAUTIONS AND USING CALL LIGHT, VERBALIZDED UNDERSTANDING. BED LOW, RAILS X2. CL IN REACH. DENIES FURTHER NEEDS. WILL CONTINUE TO MONITOR.
[2020-02-09 15:42] VITALS: BP 97/47
[2020-02-09 15:50] VITALS: BMI 14.2
[2020-02-09 19:16] VITALS: BP 103/52
[2020-02-10] VITALS: BP 112/65
[2020-02-10 04:00] VITALS: BP 100/59
[2020-02-10 06:24] LABS: BASOPHILS 0.1 % (0-2); EOSINOPHILS 0.2 % (0-7); HEMATOCRIT 25.8 % (36.0-48.0); HEMOGLOBIN 7.8 g/dL (12-16); IMMATURE GRANULOCYTES 0.7 % (0-5); LYMPHOCYTES 6.8 % (15-50); MCH 28.2 pg (26.0-34.0); MCHC 30.2 g/dL (31.0-37.0); MCV 93.1 fL (80.0-100.0); MONOCYTES 6.3 % (2-11); NEUTROPHILS 85.9 % (40-80); PLATELET COUNT 345 10x3/uL (130-400); RBC 2.77 10x6/uL (4.00-5.40); RDW 15.3 % (11.5-14.5)
[2020-02-10 06:28] LABS: WBC 10.3 10x3/uL (4.8-10.8)
[2020-02-10 06:51] LABS: CALCIUM 11.5 mg/dL (8.5-10.1); CHLORIDE - SERUM 104 mmol/L (98-107); MAGNESIUM - SERUM 1.9 mg/dL (1.8-2.4); SODIUM 137 mmol/L (136-145); UREA NITROGEN 16 mg/dL (7-18)
[2020-02-10 06:52] LABS: CALC OSMOLALITY 274 mosm/kg (275-300); CREATININE - SERUM 0.5 mg/dL (0.6-1.3); GLUCOSE 92 mg/dL (74-106); PHOSPHOROUS 1.5 mg/dL (2.5-4.9); eGFR NON AFRICAN AMERICAN > 90 mL/min (90-120)
[2020-02-10 09:16] VITALS: BP 112/63
--- NOTE | 2020-02-10 09:16 | NUR ---
PT ALERT X 4. BREATH SOUNDS CLEAR BILAT. LEFT CHEST PORT ACCESSED, PATENT, DRESSING CDI. BRUISES AND SCABS ALL OVER. PT REPORTING PAIN OF 7/10, WILL CONTINUE TO MONITOR. BED LOW, CALL LIGHT IN REACH. NO OTHER NEEDS AT THIS TIME.
[2020-02-10 17:01] VITALS: BP 115/67
[2020-02-10 18:16] LABS: PHOSPHOROUS 1.8 mg/dL (2.5-4.9); POTASSIUM - SERUM 3.4 mmol/L (3.5-5.1)
[2020-02-10 20:00] VITALS: BP 95/57
[2020-02-11] VITALS: BP 120/68
[2020-02-11 04:00] VITALS: BP 107/57
[2020-02-11 09:02] VITALS: BP 99/59
[2020-02-11 09:02] LABS: BASOPHILS 0.1 % (0-2); EOSINOPHILS 0.1 % (0-7); HEMATOCRIT 25.2 % (36.0-48.0); HEMOGLOBIN 7.7 g/dL (12-16); IMMATURE GRANULOCYTES 0.5 % (0-5); LYMPHOCYTES 7.3 % (15-50); MCH 28.4 pg (26.0-34.0); MCHC 30.6 g/dL (31.0-37.0); MONOCYTES 7.5 % (2-11); NEUTROPHILS 84.5 % (40-80); PLATELET COUNT 364 10x3/uL (130-400); RBC 2.71 10x6/uL (4.00-5.40); RDW 15.4 % (11.5-14.5); WBC 10.6 10x3/uL (4.8-10.8)
[2020-02-11 09:55] LABS: CALC OSMOLALITY 271 mosm/kg (275-300); CALCIUM 10.1 mg/dL (8.5-10.1); CARBON DIOXIDE 27.1 mmol/L (21.0-32.0); CHLORIDE - SERUM 105 mmol/L (98-107); CREATININE - SERUM 0.5 mg/dL (0.6-1.3); GLUCOSE 78 mg/dL (74-106); POTASSIUM - SERUM 3.5 mmol/L (3.5-5.1); SODIUM 137 mmol/L (136-145); eGFR NON AFRICAN AMERICAN > 90 mL/min (90-120)
[2020-02-11 09:56] LABS: MAGNESIUM - SERUM 1.4 mg/dL (1.8-2.4)
[2020-02-11 09:57] LABS: PHOSPHOROUS 1.2 mg/dL (2.5-4.9); UREA NITROGEN 11 mg/dL (7-18)
--- NOTE | 2020-02-11 12:09 | NUR ---
PT ALERT X 4. LETHARGIC TODAY. BREATH SOUNDS CLEAR BILAT. PORT TO LEFT CHEST, PATENT, DRESSING CDI. PT REPORTING PAIN OF 8/10, MEDICATED PER ORDERS, WILL CONTINUE TO MONITOR. SCD'S IN USE. BED LOW, CALL LIGHT IN REACH. NO OTHER NEEDS AT THIS TIME.
[2020-02-11 12:41] VITALS: BP 106/61
[2020-02-11 16:13] LABS: CALC OSMOLALITY 267 mosm/kg (275-300); CALCIUM 9.7 mg/dL (8.5-10.1); CHLORIDE - SERUM 105 mmol/L (98-107); CREATININE - SERUM 0.5 mg/dL (0.6-1.3); GLUCOSE 89 mg/dL (74-106); MAGNESIUM - SERUM 1.9 mg/dL (1.8-2.4); POTASSIUM - SERUM 3.7 mmol/L (3.5-5.1); SODIUM 135 mmol/L (136-145); UREA NITROGEN 9 mg/dL (7-18); eGFR NON AFRICAN AMERICAN > 90 mL/min (90-120)
[2020-02-11 16:14] LABS: PHOSPHOROUS 1.1 mg/dL (2.5-4.9)
[2020-02-11 17:09] VITALS: BP 105/65
[2020-02-11 21:20] VITALS: BP 121/71
[2020-02-12 04:00] VITALS: BP 114/62
--- NOTE | 2020-02-12 08:10 | NUR ---
ALERT AND ORIENTED. LUNGS CLEAR BILATERALLY. HEART SOUNDS S1 AND S2 HEARD IN ALL GÓMEZ. BOWEL SOUNDS ACTIVE X 4. DRSG TO LEFT HIP C/D/I. LEFT CHEST PORT PATENT WITHOUT REDNESS. DENIES NEEDS. BED LOW. FALL PRECAUTIONS IN PLACE. CALL LOVE AND PERSONAL ITEMS IN REACH. WILL CONTINUE TO MONITOR.
--- NOTE | 2020-02-12 08:50 | NUR ---
VANC TROUGH COLLECTED AND TAKEN TO LAB
[2020-02-12 09:12] VITALS: BP 88/46
[2020-02-12 09:32] LABS: CALCIUM 9.7 mg/dL (8.5-10.1); CARBON DIOXIDE 27.3 mmol/L (21.0-32.0); CHLORIDE - SERUM 103 mmol/L (98-107); CREATININE - SERUM 0.5 mg/dL (0.6-1.3); MAGNESIUM - SERUM 1.6 mg/dL (1.8-2.4); SODIUM 137 mmol/L (136-145); UREA NITROGEN 8 mg/dL (7-18); eGFR NON AFRICAN AMERICAN > 90 mL/min (90-120)
[2020-02-12 09:34] LABS: CALC OSMOLALITY 269 mosm/kg (275-300); GLUCOSE 61 mg/dL (74-106); PHOSPHOROUS 2.4 mg/dL (2.5-4.9)
[2020-02-12 09:41] LABS: BASOPHILS 0 % (0-2); EOSINOPHILS 0 % (0-7); HEMOGLOBIN 7.7 g/dL (12-16); IMMATURE GRANULOCYTES 0.3 % (0-5); LYMPHOCYTES 6.8 % (15-50); MCH 28.5 pg (26.0-34.0); MCHC 30.8 g/dL (31.0-37.0); MCV 92.6 fL (80.0-100.0); MEAN PLATELET VOLUME 9.1 fL (7.4-10.4); MONOCYTES 7.1 % (2-11); NEUTROPHILS 85.8 % (40-80); PLATELET COUNT 348 10x3/uL (130-400); RDW 15.5 % (11.5-14.5)
[2020-02-12 12:38] VITALS: BP 100/51
--- NOTE | 2020-02-12 13:06 | NUR ---
RESTING IN BED. DENIES NEEDS. WILL CONTINUE TO MONITOR.
--- NOTE | 2020-02-12 13:08 | MORECARE ---
CASE MANAGEMENT DISCHARGE SUMMARY PATIENT: ELISSA PEMBERTON UNIT: [id number] ADM DATE: 02/08/20 AGE: 69 : 49 SEX: F ROOM/BED: D.2239 AUTHOR: ARIEL,DOC PHYSICIAN: REFERRING PHYSICIAN: FRANDY RAMSEY MD DATE OF SERVICE: 02/12/20 Discharge Plan Patient Name: ELISSA PEMBERTON Facility: [facility]:[place] : 1950 Planned Disposition: Home with Hospice Anticipated Discharge Date: Discharge Date: Expected LOS: Initial Reviewer: [id number] Initial Review Date: 02/12/2020 Generated: 02/12/20 2:08 pm Comments DCP- Discharge Planning Updated by [id number]: Jacque Nash on 02/12/20 12:[address] Patient Name: ELISSA PEMBERTON Admission Status: ER Accout number: [id number] Admission Date: 02-08-2020 : 1950 Admission Diagnosis:NAUSEA WITH VOMITING, UNSPECIFIED Attending: PRABHJOT Current LOS: 4 Anticipated DC Date: Planned Disposition: Home with Hospice Primary Insurance: MEDICARE A & B Discharge Planning Comments: CM met with patient at bedside after explaining CM role and obtaining verbal consent. CM discussed availability / needs of home health, REHAB and medical equipment. RHODA AT BEDSIDE. THEY SPOKE WITH DR. ARCINIEGA TODAY AND DISCUSSED HOSPICE. PLAN IS TO GO HOME WITH [facility]. ALISSON AND IMM SIGNED. I AM FAXING REFERRAL TO [facility] NOW AND WAITING CALL BACK. CM TO FOLLOW AND ASSIST NEEDED. Rheologist: Jacque Nash DCPIA - Discharge Planning Initial Assessment Updated by [id number]: Jacque Nash on 02/12/20 1:03 pm * Is the patient Alert and Oriented? Yes * PCP MALDONADO * Pharmacy [facility] * Preadmission Environment Home with Family * List name and contact numbers for known caregivers / representatives who currently or will assist patient after discharge: RHODA, WILL MARSHALL, SON, * Community resources currently utilized Home Health * Please name any agencies selected above. [facility] * Additional services required to return to the preadmission environment? No * Can the patient safely return to the preadmission environment? Yes * Has this patient been hospitalized within the prior 30 days at any hospital? No External Providers External Provider: OTHER-OTHER Next Contact Date: Service Request Date: Service Type: Resolution: Reviewer: Comments: Patient Name: ELISSA PEMBERTON Page [phone] at 1308 All edits/amendments must be made on the electronic document DICTATION DATE: 02/12/20 1308 BENCH INSPECTOR: KRISTA 02/12/20 1308 RPT#: [id number] DC DATE: STATUS: ADM IN [facility] [address] [place] [address] END OF REPORT
--- NOTE | 2020-02-12 13:15 | MORECARE ---
CASE MANAGEMENT DISCHARGE SUMMARY PATIENT: ELISSA PEMBERTON UNIT: [id number] ADM DATE: 02/08/20 AGE: 69 : 49 SEX: F ROOM/BED: D.2239 AUTHOR: ARIEL,DOC PHYSICIAN: REFERRING PHYSICIAN: FRANDY RAMSEY MD DATE OF SERVICE: 02/12/20 Discharge Plan Patient Name: ELISSA PEMBERTON Facility: [facility]:[place] : 1950 Planned Disposition: Home with Hospice Anticipated Discharge Date: Discharge Date: Expected LOS: Initial Reviewer: [email or web address] Initial Review Date: 02/12/2020 Generated: 02/12/20 2:15 pm Comments DCP- Discharge Planning Updated by [email or web address]: Jacque Nash on 02/12/20 12:[address] Patient Name: ELISSA PEMBERTON Admission Status: ER Accout number: [id number] Admission Date: 02-08-2020 : 1950 Admission Diagnosis:NAUSEA WITH VOMITING, UNSPECIFIED Attending: PRABHJOT Current LOS: 4 Anticipated DC Date: Planned Disposition: Home with Hospice Primary Insurance: MEDICARE A & B Discharge Planning Comments: CM met with patient at bedside after explaining CM role and obtaining verbal consent. CM discussed availability / needs of home health, REHAB and medical equipment. ROHDA AT BEDSIDE. THEY SPOKE WITH DR. ARCINIEGA TODAY AND DISCUSSED HOSPICE. PLAN IS TO GO HOME WITH [facility]. ALISSON AND IMM SIGNED. I AM FAXING REFERRAL TO [facility] NOW AND WAITING CALL BACK. CM TO FOLLOW AND ASSIST NEEDED. Ground Transportation Operator: Jacque Nash DCPIA - Discharge Planning Initial Assessment Updated by [id number]: Jacque Nash on 02/12/20 1:03 pm * Is the patient Alert and Oriented? Yes * PCP MALDONADO * [facility]acy [facility] * Preadmission Environment Home with Family * List name and contact numbers for known caregivers / representatives who currently or will assist patient after discharge: RHODA, WILL MARSHALL, SON, * Community resources currently utilized Home Health * Please name any agencies selected above. [facility] * Additional services required to return to the preadmission environment? No * Can the patient safely return to the preadmission environment? Yes * Has this patient been hospitalized within the prior 30 days at any hospital? No External Providers External Provider: OTHER-OTHER Next Contact Date: Service Request Date: Service Type: Resolution: Reviewer: Comments: Last DP export: 02/12/20 12:08 pm Patient Name: ELISSA PEMBERTON Page [phone] at 1315 All edits/amendments must be made on the electronic document DICTATION DATE: 02/12/20 131 SOFTWARE TEST MANAGER: KRISTA 02/12/20 1315 RPT#: [id number] DC DATE: STATUS: ADM IN [facility] [address] [place] [address] END OF REPORT
--- NOTE | 2020-02-12 15:12 | NUR ---
OT NOTE: PT COMPLETED FACE AND HAND HYGIENEW WITH MIN A. PT COMPLETED POSITIONING WITH MOD A. [id number] THANK YOU,CODEY SHAVER
--- NOTE | 2020-02-12 17:14 | MORECARE ---
CASE MANAGEMENT DISCHARGE SUMMARY PATIENT: ELISSA PEMBERTON UNIT: [id number] ADM DATE: 02/08/20 AGE: 69 : 49 SEX: F ROOM/BED: D.2239 AUTHOR: ARIELDOC PHYSICIAN: REFERRING PHYSICIAN: FRANDY RAMSEY MD DATE OF SERVICE: 02/12/20 Discharge Plan Patient Name: ELISSA PEMBERTON Facility: [facility]:[place] : 1950 Planned Disposition: Home with Hospice Anticipated Discharge Date: Discharge Date: Expected LOS: Initial Reviewer: [email or web address] Initial Review Date: 02/12/2020 Generated: 02/12/20 6:14 pm Comments DCP- Discharge Planning Updated by [id number]: Jacque Nash on 02/12/20 4:[address] Patient Name: ELISSA PEMBERTON Admission Status: ER Accout number: [id number] Admission Date: 02-08-2020 : 1950 Admission Diagnosis:NAUSEA WITH VOMITING, UNSPECIFIED Attending: PRABHJOT Current LOS: 4 Anticipated DC Date: Planned Disposition: Home with Hospice Primary Insurance: MEDICARE A & B Discharge Planning Comments: HOSPICE SETTING UP EQUIPMENT TODAY IN THE HOME. ANTICIPATE DC TO HOME WITH HOSPICE IN THE MORNING. CM TO FOLLOW AND ASSIST NEEDED. Corporate Manager: Jacque Nash DCP- Discharge Planning Updated by [id number]: Jacque Nash on 02/12/20 12:[address] Patient Name: ELISSA PEMBERTON Admission Status: ER Accout number: [id number] Admission Date: 02-08-2020 : 1950 Admission Diagnosis:NAUSEA WITH VOMITING, UNSPECIFIED Attending: PRABHJOT Current LOS: 4 Anticipated DC Date: Planned Disposition: Home with Hospice Primary Insurance: MEDICARE A & B Discharge Planning Comments: CM met with patient at bedside after explaining CM role and obtaining verbal consent. CM discussed availability / needs of home health, REHAB and medical equipment. RHODA AT BEDSIDE. THEY SPOKE WITH DR. ARCINIEGA TODAY AND DISCUSSED HOSPICE. PLAN IS TO GO HOME WITH [facility]. ALISSON AND IMM SIGNED. I AM FAXING REFERRAL TO [facility] NOW AND WAITING CALL BACK. CM TO FOLLOW AND ASSIST NEEDED. Corporate Manager: Jacque Nash DCPIA - Discharge Planning Initial Assessment Updated by [id number]: Jacque Nash on 02/12/20 1:03 pm * Is the patient Alert and Oriented? Yes * PCP ERICA * [facility]acy [facility] * Preadmission Environment Home with Family * List name and contact numbers for known caregivers / representatives who currently or will assist patient after discharge: RHODA, JOANNA, SON, * Community resources currently utilized Home Health * Please name any agencies selected above. [facility] * Additional services required to return to the preadmission environment? No * Can the patient safely return to the preadmission environment? Yes * Has this patient been hospitalized within the prior 30 days at any hospital? No Last DP export: 02/12/20 12:15 pm Patient Name: ELISSA PEMBERTON Page [phone] at 1714 All edits/amendments must be made on the electronic document DICTATION DATE: 02/12/201713 SOLE BLACKER: KRISTA 02/12/201713 RPT#: [id number] DC DATE: STATUS: ADM IN [facility] [address] [place] [address] END OF REPORT
[2020-02-12 18:45] VITALS: BP 95/60
--- NOTE | 2020-02-12 18:51 | NUR ---
SLEEPING. WILL CONTINUE TO MONITOR.
--- NOTE | 2020-02-12 19:30 | NUR ---
ASSISTED ONTO BEDPAN. VERY WEAK. PT IS EMACIATED. RESP IRREG. NONPROD COUGH. BRUISES NOTED TO BUE. SCD TO RLE. PLASMALYTE INFUSING @ 30 MLHR IN LT CHEST WALL INFUSAPORT. DSRG NOTED TO LT HIP. DENIES PAIN. SR ELEVATED X2. CL IN REACH. ALARM ON.
[2020-02-12 20:00] VITALS: BP 99/58
[2020-02-13 01:00] VITALS: BP 97/57
--- NOTE | 2020-02-13 01:52 | NUR ---
MEDICATED WITH NORCO FOR C/O PAIN IN BACK. CL IN REACH.
--- NOTE | 2020-02-13 03:20 | NUR ---
STILL C/O PAIN IN BACK. INFORMED PT IT WAS TOO SOON FOR ANYMORE PAIN MEDS. SHE VERBALIZED UNDERSTANDING.
[2020-02-13 04:00] VITALS: BP 92/49
--- NOTE | 2020-02-13 05:30 | NUR ---
COMPLETE LINEN CHANGE PERFORMED AT THIS TIME. PT MAYRA WELL. ASSISTED ONTO BEDPAN TO VOID. BILAT HEELS FLOATED ON PILLOWS.
[2020-02-13 06:52] LABS: BASOPHILS 0 % (0-2); EOSINOPHILS 0.2 % (0-7); HEMATOCRIT 25.5 % (36.0-48.0); IMMATURE GRANULOCYTES 0.5 % (0-5); LYMPHOCYTES 6.2 % (15-50); MCH 28.7 pg (26.0-34.0); MCHC 31.4 g/dL (31.0-37.0); MCV 91.4 fL (80.0-100.0); MONOCYTES 7.2 % (2-11); NEUTROPHILS 85.9 % (40-80); PLATELET COUNT 362 10x3/uL (130-400); RBC 2.79 10x6/uL (4.00-5.40); RDW 15.2 % (11.5-14.5); WBC 10.9 10x3/uL (4.8-10.8)
[2020-02-13 07:07] LABS: CARBON DIOXIDE 28.6 mmol/L (21.0-32.0); CHLORIDE - SERUM 104 mmol/L (98-107); CREATININE - SERUM 0.4 mg/dL (0.6-1.3); MAGNESIUM - SERUM 1.5 mg/dL (1.8-2.4); POTASSIUM - SERUM 3.2 mmol/L (3.5-5.1); SODIUM 136 mmol/L (136-145); eGFR NON AFRICAN AMERICAN > 90 mL/min (90-120)
[2020-02-13 07:08] LABS: CALC OSMOLALITY 270 mosm/kg (275-300); GLUCOSE 95 mg/dL (74-106); PHOSPHOROUS 1.6 mg/dL (2.5-4.9); UREA NITROGEN 11 mg/dL (7-18)
--- NOTE | 2020-02-13 08:27 | NUR ---
PT ALERT AND ORIENTED UPON ENTERING. HELPED PT ON AND OFF OF BED CASTILLO. ADMINISTERED MORNING MEDICATIONS, NO DIFFICULTIES. PT IS RESTING COMFORTABLY IN BED. DENIES ANY NEEDS. BED IN LOWEST POSITION, BED RAILS X2, CALL LIGHT WITHIN REACH. WILL CONTINUE TO MONITOR.
[2020-02-13 09:01] VITALS: BP 106/50
--- NOTE | 2020-02-13 10:29 | NUR ---
HUNG IV ABX. PHYSICAL THERAPY IN ROOM ROLLING PT AND STRAIGHTENING SHEETS. DENIES ANY NEEDS AT THIS TIME. WILL CONTINUE TO MONITOR. BED IN LOWEST POSITION, BED RAILS X2, CALL LIGHT WITHIN REACH.
--- NOTE | 2020-02-13 11:54 | NUR ---
OT NOTE: PT IN SEVERE PAIN WITH MOBILTY TODAY. PT MADE ATTEMPTS TO SIT UP ON EOB BUT WAS UNABLE TO TOLERATE GREATER THAN 1 MIN DUE TO REPORTED HIP PAIN. SUPINE TO SIT WITH MAX ASSIST AT VERY SLOW PACE; ROLLING SIDE TO SIDE WITH MOD/MAX ASSIST AND CONTINUAL YELLING OUT OF PAIN. PT WAS UNABLE TO STAND TODAY. SHE WAS ABLE TO PERFORM SIMPLE ADL TASKS FROM BED LEVEL..UNABLE TO TRANSFER.. STATES THAT HER IS GETTING THE HOUSE SET UP FOR HER TO GO HOME TODAY. UNSURE OF ACCURACY OF THIS INFO. HUMERA KAMARA, OTR/L [phone]
--- NOTE | 2020-02-13 13:12 | NUR ---
PT HAS SIGNED ALL NECESSARY DISCHARGE PAPERWORK. LEFT CHEST PORT DEACCESSED BY CHARANJIT CHRISTINA. PT IS GETTING DRESSED. FAMILY IN ROOM TO ESCORT PT HOME. DENIES ANY NEEDS.
--- NOTE | 2020-02-13 13:41 | NUR ---
I have reviewed this patient and I concur with the Shift Assessment completed by the Licensed Practical Nurse today this shift.
[2020-02-13 18:32] VITALS: Ht 167.6 cm; Wt 39.9 kg
--- NOTE | 2020-02-14 17:15 | MORECARE ---
CASE MANAGEMENT DISCHARGE SUMMARY PATIENT: ELISSA PEMBERTON UNIT: [id number] ADM DATE: 02/08/20 AGE: 69 : [birth year] SEX: F ROOM/BED: D.2239 AUTHOR: JOSE GEORGE PHYSICIAN: REFERRING PHYSICIAN: FRANDY RAMSEY MD DATE OF SERVICE: 02/14/20 Discharge Plan Patient Name: ELISSA PEMBERTON Facility: [facility]:[place] : 1950 Planned Disposition: Home with Hospice Anticipated Discharge Date: Discharge Date: 02/13/2020 Expected LOS: Initial Reviewer: [id number] Initial Review Date: 02/12/2020 Generated: 02/14/20 6:14 pm Comments DCP- Discharge Planning Updated by [id number]: Jacque Nash on 02/12/20 4:[address] Patient Name: ELISSA PEMBERTON Admission Status: ER Accout number: [id number] Admission Date: 02-08-2020 : 1950 Admission Diagnosis:NAUSEA WITH VOMITING, UNSPECIFIED Attending: PRABHJOT Current LOS: 4 Anticipated DC Date: Planned Disposition: Home with Hospice Primary Insurance: MEDICARE A & B Discharge Planning Comments: HOSPICE SETTING UP EQUIPMENT TODAY IN THE HOME. ANTICIPATE DC TO HOME WITH HOSPICE IN THE MORNING. CM TO FOLLOW AND ASSIST NEEDED. Audio/Visual Operator: Jacque Nash DCP- Discharge Planning Updated by [email or web address]: Jacque Nash on 02/12/20 12:[address] Patient Name: ELISSA PEMBERTON Admission Status: ER Accout number: [id number] Admission Date: 02-08-2020 : 1950 Admission Diagnosis:NAUSEA WITH VOMITING, UNSPECIFIED Attending: PRABHJOT Current LOS: 4 Anticipated DC Date: Planned Disposition: Home with Hospice Primary Insurance: MEDICARE A & B Discharge Planning Comments: CM met with patient at bedside after explaining CM role and obtaining verbal consent. CM discussed availability / needs of home health, REHAB and medical equipment. RHODA AT BEDSIDE. THEY SPOKE WITH DR. ARCINIEGA TODAY AND DISCUSSED HOSPICE. PLAN IS TO GO HOME WITH [facility]. ALISSON AND IMM SIGNED. I AM FAXING REFERRAL TO [facility] NOW AND WAITING CALL BACK. CM TO FOLLOW AND ASSIST NEEDED. Audio/Visual Operator: Jacque Charity DCPIA - Discharge Planning Initial Assessment Updated by [id number]: Jacque Nash on 02/12/20 1:03 pm * Is the patient Alert and Oriented? Yes * PCP MALDONADO * Pharmacy [facility] * Preadmission Environment Home with Family * List name and contact numbers for known caregivers / representatives who currently or will assist patient after discharge: RHODA, JOANNA, SON, * Community resources currently utilized Home Health * Please name any agencies selected above. [facility] * Additional services required to return to the preadmission environment? No * Can the patient safely return to the preadmission environment? Yes * Has this patient been hospitalized within the prior 30 days at any hospital? No Coverage Notice Reviewer: [email or web address] Rylee Nash Notice Issued Date-Time: 02/12/2020 17:54 Notice Type: Patient Choice Letter Notice Delivered To: Relationship to Patient: Dedicated Driver Name: Delivery Method: HAND - Hand Delivered Ilana Days: Prior Verbal Notification: Recipient Understood Notice: Yes Recipient Signature: Yes Med Rec Note Co-signed by Attending: Coverage Notice Comment: [facility] Reviewer: [email or web address] Rylee Nash Notice Issued Date-Time: 02/12/2020 17:54 Notice Type: IM Discharge Notice Notice Delivered To: Relationship to Patient: Dedicated Driver Name: Delivery Method: HAND - Hand Delivered Ilana Days: Prior Verbal Notification: Recipient Understood Notice: Yes Recipient Signature: Yes Med Rec Note Co-signed by Attending: Coverage Notice Comment: Last DP export: 02/12/20 4:14 pm Patient Name: ELISSA PEMBERTON Page [phone] at 1715 All edits/amendments must be made on the electronic document DICTATION DATE: 02/14/201714 DIPPER FISH: KRISTA 02/14/205 RPT#: [id number] DC DATE:02/13/20 STATUS: DIS IN [facility] [address] [place] [address] END OF REPORT
[2020-02-19 17:06] LABS: AEROBE ID Final report (()); RESULT 1 Gram positive rods (())
== END 2020-02-13 13:30 | disposition home health service (06) | DRG 391 ==
LOC: D.ER 07:00 → D.MS 09:50
PROVIDERS: Family Medicine; Internal Medicine Nephrology; ADMIT Family Medicine; ATTEND Family Medicine
DX: A09 Infectious gastroenteritis and colitis, unspecified (principal); R53.2 Functional quadriplegia; G93.41 Metabolic encephalopathy; E43 Unspecified severe protein-calorie malnutrition; C34.90 Malignant neoplasm of unspecified part of unspecified bronchus or lung; C79.51 Secondary malignant neoplasm of bone; E87.1 Hypo-osmolality and hyponatremia; R64 Cachexia; Z68.1 Body mass index [BMI] 19.9 or less, adult; R78.81 Bacteremia; N39.0 Urinary tract infection, site not specified; E83.52 Hypercalcemia; J44.9 Chronic obstructive pulmonary disease, unspecified; K21.9 Gastro-esophageal reflux disease without esophagitis; D63.0 Anemia in neoplastic disease; R34 Anuria and oliguria